=== PATIENT | female | born 1975 | race Caucasian/White ===

== ENCOUNTER 2023-04-05 19:57 | Observation (INO) | payer MEDICARE, SELFPAY ==
[2023-04-05 20:01] VITALS: BP 122/61; PULSE 83; RESP 16; TEMP 37; O2SAT 97
--- NOTE | 2023-04-05 20:12 | US_ITS ---
The [address] [address] Patient Name: SRUTHI GRIGGS MRN: [id number] date: 1975 Sex: F Assigned Patient Location: ER Current Patient Location: ED.MAIN Accession/Order Number: [id number] Exam Date: 04/05/2023 20:20 Report Date: 04/05/2023 21:00 At the request of: MIRIAN GLEASON Procedure: US venous doppler LE LT EXAMINATION: US venous doppler LE LT HISTORY: Left lower extremity edema and redness COMPARISON: None. TECHNIQUE: Venous duplex examination of the left lower extremity performed using B-mode, color flow and spectral analysis. FINDINGS: Left Thigh Veins: Common Femoral: Patent. Femoral (SFV): Patent. Popliteal: Patent. Left Calf Veins: Peroneal: Patent. Posterior Tibial: Patent. IMPRESSION: No evidence of deep venous thrombosis in the left lower extremity. Electronically authenticated by: JARRETT MIRANDA Date: 04/05/2023 21:00
--- NOTE | 2023-04-05 20:12 | ECG_ITS ---
The [facility] Test Date: 2023-04-05 Pat Name: SRUTHI GRIGGS Department: Room: - Gender: Female Application Lead: : 1975 Requested By: [id number] Order Number: [id number] Reading MD: MEENA VERMA Measurements Intervals [place] Rate: 82 P: 44 CT: 158 QRS: 64 QRSD: 90 T: 27 QT: 372 QTc: 411 Interpretive Statements 1100 Sinus rhythm 8102 Low QRS voltage in chest leads 9120 atypical ECG No previous ECG available for comparison Electronically Signed On 04-06-2023 7:02:23 EDT by MEENA VERMA
--- NOTE | 2023-04-05 20:15 | ED_ITS ---
Patient was evaluated in conjunction with the physician assistant golf course superintendent. I agree with the workup and plan for admission. HPI - General Adult General Chief complaint: Skin/Abscess/Foreign Body Stated complaint: MS Flair up Time Seen by Provider: 04/05/23 20:12 Source: patient Mode of arrival: ambulance Limitations: physical limitation History of Present Illness HPI narrative: Patient is a 48-year-old female with multiple sclerosis who presents to the emergency department by ambulance for the evaluation of anxiety and increasing weakness. She states she is having an MS exacerbation that was brought on by her anxiety. She had a fall at home prior to arrival without injury. She further complains of redness and swelling with pain to the left anterior leg. She states for the last three weeks she has had redness, blistering and drainage from the left anterior tibia. She denies fevers, vomiting. She has not been evaluated for this previously. She states she lives at home alone and has to care for herself. Patient is noted to smell strongly of urine with animal hair covering her clothing, she appears unkempt with poor hygiene Related Data Home Medications Medication Instructions Recorded Confirmed 4 aminopyridine 10mg PO TID 04/05/23 baclofen 20 mg tablet 20 mg PO Q8H PRN muscle spasm 04/05/23 04/05/23 cholecalciferol (vitamin D3) 1,250 50,000 unit PO .COMPLEX 04/05/23 04/05/23 mcg (50,000 unit) capsule dalfampridine 10 mg 10 mg PO Q12H 04/05/23 04/05/23 tablet,extended release,12 hr modafinil 200 mg tablet 200 mg PO DAILY 04/05/23 04/05/23 sertraline 100 mg tablet 100 mg PO DAILY 04/05/23 04/05/23 solifenacin 10 mg tablet 10 mg PO DAILY 04/05/23 04/05/23 Allergies Allergy/AdvReac Type Severity Reaction Status Date / Time No Known Drug Allergies Allergy Verified 04/05/23 20:00 Review of Systems ROS Constitutional Denies: fever or chills Ears, nose, mouth, and throat Denies: neck pain Cardiovascular Denies: chest pain Respiratory Denies: shortness of breath or cough Gastrointestinal Denies: nausea or vomiting Genitourinary Denies: painful urination Musculoskeletal Denies: back pain Psychiatric Denies: anxiety PFSH PFS Medical History (Updated 04/06/23 @ 00:06 by Gutierrez Johnson MD) Social History Smoking status: Current some day smoker Gender Identity: female Exam Narrative Exam Narrative: Gen.: Awake, alert, in no distress Head: Normocephalic, atraumatic ENT: Moist mucous membranes Respiratory: No respiratory distress, lungs clear bilaterally Cardio: Regular rate and rhythm Extremities: Left calf is significantly more swollen than the right calf with a large erythematous blistered area to the left anterior tibia. No drainage noted. Animal and human hair appears stuck to the area circumferentially. No circumferential erythema noted, 2+ DP pulses bilaterally. Significantly limited motion of the lower extremities Psych: Anxious Neuro: No focal neuro deficit Skin: Warm, dry Constitutional Vital Signs - 24 hr 04/05/23 20:01 04/05/23 20:25 Temperature 98.6 F Pulse Rate [Monitor] 83 79 Respiratory Rate 16 17 Blood Pressure [Right Arm] 122/61 H Pulse Oximetry 97 Oxygen Delivery Method Room Air Course Vital Signs Vital signs: Vital Signs Temperature 98.6 F 04/05/23 20:01 Pulse Rate 83 04/05/23 20:01 Respiratory Rate 16 04/05/23 20:01 Blood Pressure 122/61 H 04/05/23 20:01 Pulse Oximetry 97 04/05/23 20:01 Oxygen Delivery Method Room Air 04/05/23 20:01 Temperature 97.8 F 04/05/23 22:40 Pulse Rate 74 04/05/23 22:40 Respiratory Rate 18 04/05/23 22:40 Blood Pressure 120/73 H 04/05/23 22:40 Pulse Oximetry 95 04/05/23 22:40 Oxygen Delivery Method Room Air 04/05/23 22:40 Medical Decision Making [facility] Narrative Medical decision making narrative: Patient was treated with Ativan in the Emergency Room, sepsis orders were initiated although the labs show that the patient does not have sepsis. Ultras ound with no evidence of deep vein thrombosis. Patient is treated with Ancef for cellulitis of the left lower extremity. She is high risk for failure of outpatient treatment and not able to care for herself, she is significantly weak and unable to ambulate well with falls at home. We will admit for observation for treatment of cellulitis of the left leg with professor of social work consult. Stable at time of admission Medical Records Medical records reviewed: Yes I reviewed the patient's medical records Lab Data Lab results reviewed: Yes I reviewed the patient's lab results Labs: Lab Results 04/05/23 Range/Units 20:20 WBC 6.1 (4.0-11.0) 10^3/uL RBC 3.74 L (4.20-5.40) 10^6/uL Hgb 9.8 L (12.0-16.0) g/dL Hct 31.5 L (36.0-48.0) % MCV 84.2 (81.0-99.0) fL MCH 26.2 L (26.7-34.0) pg MCHC 31.1 (29.9-35.2) g/dL RDW 14.5 (11.0-15.0) % Plt Count 282 (150-450) 10^3/uL MPV 9.1 L (9.5-13.5) fL Neut % (Auto) 78.7 H (43.0-75.0) % Lymph % (Auto) 9.9 L (20.5-60.0) % Sharkey % (Auto) 8.1 (1.7-12.0) % Eos % (Auto) 2.3 (0.9-7.0) % Baso % (Auto) 0.3 (0.2-2.0) % Neut # (Auto) 4.8 (1.4-6.5) 10^3/uL Lymph # (Auto) 0.6 L (1.2-3.8) 10^3/uL Sharkey # (Auto) 0.5 (0.3-0.8) 10^3/uL Eos # (Auto) 0.1 (0.0-0.7) 10^3/uL Baso # (Auto) 0.0 (0.0-0.1) 10^3/uL Abs Immat Gran (auto) 0.04 H (0.00-0.03) 10^3/uL Imm/Tot Granulo (auto) 0.7 H (0.0-0.5) % PT 10.1 (9.0-11.6) sec INR 0.95 APTT 28.2 (22.3-36.2) sec Sodium 136 (136-145) mmol/L Potassium 3.3 L (3.5-5.1) mmol/L Chloride 103 (98-107) mmol/L Carbon Dioxide 24.6 (21.0-32.0) mmol/L Anion Gap 11.7 BUN 13.0 (7.0-18.0) mg/dL Creatinine 0.72 (0.55-1.02) mg/dL Est GFR ( Amer) >60 (>=60) Est GFR (Non-Af Amer) >60 (>=60) BUN/Creatinine Ratio 18.1 Glucose 87 (74-106) mg/dL Lactate 0.5 (0.4-2.0) mmol/L Calcium 8.7 (8.5-10.1) mg/dL Total Bilirubin 0.2 (0.2-1.0) mg/dL AST 14 L (15-37) U/L ALT 12 L (14-59) U/L Alkaline Phosphatase 106 (46-116) U/L Total Protein 7.0 (6.4-8.2) g/dL Albumin 2.8 L (3.4-5.0) g/dL Globulin 4.2 g/dL Albumin/Globulin Ratio 0.7 Imaging Data Venous US: Attestation: I have reviewed the pertinent imaging results. Radiologist's impression: Procedure: US venous doppler LE LT EXAMINATION: US venous doppler LE LT HISTORY: Left lower extremity edema and redness COMPARISON: None. TECHNIQUE: Venous duplex examination of the left lower extremity performed using B-mode, color flow and spectral analysis. FINDINGS: Left Thigh Veins: Common Femoral: Patent. Femoral (SFV): Patent. Popliteal: Patent. Left Calf Veins: Peroneal: Patent. Posterior Tibial: Patent. IMPRESSION: No evidence of deep venous thrombosis in the left lower extremity. Electronically authenticated by: JARRETT MIRANDA Date: 04/05/2023 21:00 Discharge Plan Discharge Chief Complaint: Skin/Abscess/Foreign Body Clinical Impression: Generalized weakness, Cellulitis Patient Disposition: Admitted as Observation Time of Disposition Decision: 21:40 Condition: Good Discharge Date/Time: 04/05/23 22:25
[2023-04-05 20:25] VITALS: PULSE 79; RESP 17
[2023-04-05] MEDS: LORAZEPAM 2 MG/ML 1 ML VIAL 1 MG IV (20:38)
[2023-04-05 20:47] LABS: Basophils Percent Auto 0.3 % (0.2-2.0); Eosinophils Absolute Auto 0.1 10^3/uL (0.0-0.7); Eosinophils Percent Auto 2.3 % (0.9-7.0); Hematocrit 31.5 % (36.0-48.0); Hemoglobin 9.8 g/dL (12.0-16.0); Immature Granulocytes Abs Auto 0.04 10^3/uL (0.00-0.03); Immature Granulocytes Pct Auto 0.7 % (0.0-0.5); Lymphocytes Absolute Auto 0.6 10^3/uL (1.2-3.8); Lymphocytes Percent Auto 9.9 % (20.5-60.0); Mean Corpuscular HGB Conc 31.1 g/dL (29.9-35.2); Mean Corpuscular Hemoglobin 26.2 pg (26.7-34.0); Mean Corpuscular Volume 84.2 fL (81.0-99.0); Mean Platelet Volume 9.1 fL (9.5-13.5); Monocytes Absolute Auto 0.5 10^3/uL (0.3-0.8); Monocytes Percent Auto 8.1 % (1.7-12.0); Neutrophils Absolute Auto 4.8 10^3/uL (1.4-6.5); Neutrophils Percent Auto 78.7 % (43.0-75.0); Platelet Count 282 10^3/uL (150-450); Red Blood Count 3.74 10^6/uL (4.20-5.40); Red Cell Distribution Width 14.5 % (11.0-15.0); White Blood Count 6.1 10^3/uL (4.0-11.0)
[2023-04-05 20:58] LABS: INR 0.95; Partial Thromboplastin Time 28.2 sec (22.3-36.2); Prothrombin Time 10.1 sec (9.0-11.6)
[2023-04-05 20:59] LABS: Lactate/Lactic Acid 0.5 mmol/L (0.4-2.0)
[2023-04-05 21:08] LABS: Alanine Aminotransferase 12 U/L (14-59); Albumin Globulin Ratio 0.7; Albumin Level 2.8 g/dL (3.4-5.0); Alkaline Phosphatase 106 U/L (46-116); Anion Gap 11.7; Aspartate Amino Transferase 14 U/L (15-37); BUN Creatinine Ratio 18.1; Bilirubin Total 0.2 mg/dL (0.2-1.0); Calcium 8.7 mg/dL (8.5-10.1); Carbon Dioxide 24.6 mmol/L (21.0-32.0); Chloride 103 mmol/L (98-107); Estimated GFR (African America >60 (>=60); Estimated GFR (Non-African Ame >60 (>=60); Globulin 4.2 g/dL; Glucose 87 mg/dL (74-106); Potassium 3.3 mmol/L (3.5-5.1); Sodium 136 mmol/L (136-145)
--- NOTE | 2023-04-05 21:38 | PC.NURSE ---
left leg wound cleaned and soaked with a Hibiclens bath, matted hair and dry skin cleared off. Pt has a large wound that is somewhat macerated , on left lower leg that wraps around to the back. Skin is sloughy in places and has dried scabs in others . Cellulitis and possible stasis ulcer.
[2023-04-05 22:40] VITALS: BP 120/73; PULSE 74; RESP 18; TEMP 36.6; O2SAT 95; BMI 29.4
--- NOTE | 2023-04-06 | W.PM.TELEPN ---
Progress Note: Subjective Subjective Interval history: LLE wound HPI: this is a 48-year-old female with known hx/o multiple sclerosis who presents to the emergency department by ambulance for the evaluation of anxiety and increasing weakness. She states she is having an MS exacerbation that was brought on by her anxiety. She had a fall at home prior to arrival without injury. She further complains of redness and swelling with pain to the left anterior leg. She states for the last three weeks she has had redness, blistering and drainage from the left anterior tibia. She denies fevers, vomiting. She has not been evaluated for this previously. She states she lives at home alone and has to care for herself. Patient is noted to smell strongly of urine with animal hair covering her clothing, she appears unkempt with poor hygiene. Further evaluation in ED included LLE US which was negative for DVT. Hospitalist consulted for admission Exam Narrative Exam Narrative: NAD, PERRLA< EOMI, MMM Neck - supple, Thyroid not enlarged, LN not palpated Lungs - CTA B/L Card - S1, S2 ABd - NT/ND/+ BSs Ext - no C/C - B/L LE edema - Lt>Rt SKin - large wound LLE mid sheen anterior serface, no obvious drainage Small wound with black eschar RT leg with surrounding reddnes Neuro - CNII- XII grossly intact, Constitutional Vital Signs - 24 hr 04/05/23 20:01 04/05/23 20:25 04/05/23 22:40 Temperature 98.6 F 97.8 F Pulse Rate 74 Pulse Rate [Monitor] 83 79 Respiratory Rate 16 17 18 Blood Pressure [Right Arm] 122/61 H 120/73 H Pulse Oximetry 97 95 Oxygen Delivery Method Room Air Room Air Progress Note: Objective Labs Labs: Short CBC 04/05/23 Range/Units 20:20 WBC 6.1 (4.0-11.0) 10^3/uL Hgb 9.8 L (12.0-16.0) g/dL Hct 31.5 L (36.0-48.0) % Plt Count 282 (150-450) 10^3/uL BMP 04/05/23 20:20 Sodium 136 Potassium 3.3 L Chloride 103 Carbon Dioxide 24.6 BUN 13.0 Creatinine 0.72 Glucose 87 Calcium 8.7 Liver Function 04/05/23 Range/Units 20:20 Total Bilirubin 0.2 (0.2-1.0) mg/dL AST 14 L (15-37) U/L ALT 12 L (14-59) U/L Alkaline Phosphatase 106 (46-116) U/L Albumin 2.8 L (3.4-5.0) g/dL Progress Note: A&P Assessment and Plan (1) Generalized weakness: Assessment and Plan: multifactorial fall precautions PT/OT treat underlying causes (2) Cellulitis: Assessment and Plan: started on broad spectrum abxs wound care consult (3) Anxiety: Assessment and Plan: resume home Rx (4) Iron deficiency anemia: Assessment and Plan: no need for transfusions (5) Multiple sclerosis: Assessment and Plan: continue home Rx, differ for OP management (6) Neurogenic incontinence: Assessment and Plan: might need Tran for now (7) Hypokalemia: Assessment and Plan: going to replace, check Mg level (8) Adult failure to thrive: Assessment and Plan: as above, might need placement (9) Protein-calorie malnutrition, moderate: Assessment and Plan: nutritional services consulted, going to check prealbumin Telemedicine Attestation Telemedicine Attestation I conducted this encounter from [[place]] via secure live, [id number] video conference with the patient, located at [facility] with [Cellulitis]. Prior to the interview, the risks and benefits of telemedicine were discussed with the patient and verbal consent was obtained.
[2023-04-06 01:19] LABS: Bilirubin Urine NEGATIVE (NEGATIVE); Blood Urine SMALL (NEGATIVE); Clarity Urine CLEAR (CLEAR); Color Urine LT. YELLOW (YELLOW); Glucose Urine UA NEGATIVE (NEGATIVE); Ketones Urine NEGATIVE (NEGATIVE); Leukocyte Esterase Urine MODERATE (NEGATIVE); Nitrite Urine POSITIVE (NEGATIVE); Protein Urine NEGATIVE (NEG/TRACE); Urine Microscopic Indicated YES; Urobilinogen Urine 0.2 EU/dL (0.2-1.0)
[2023-04-06 01:25] LABS: Bacteria Urine LARGE #/HPF (NONE SEEN); Mucus Urine NONE SEEN (NONE SEEN); RBC Urine 0-2 #/HPF (0-2); WBC Urine 20-50 #/HPF (NONE SEEN)
[2023-04-06 01:26] LABS: Cast Seen? NONE SEEN #/LPF (NONE SEEN); Crystals Seen? None Seen #/HPF (None Seen); Squamous Epithelial Cell Urine FEW #/LPF (NONE/RARE); Urine Culture Indicated YES
[2023-04-06] MEDS: CEFTRIAXONE 1,000 MG in 0.9 % SODIUM CHLORIDE 50 ML 100 MG IV (02:22)
[2023-04-06] MEDS: 0.9 % SODIUM CHLORIDE 250 ML 30 ML IV (02:24)
[2023-04-06] MEDS: POTASSIUM CHLORIDE 10 MEQ ER TABLET 40 MEQ PO (02:24)
[2023-04-06 04:26] VITALS: TEMP 36.9
[2023-04-06] MEDS: VANCOMYCIN HCL 1,500 MG in 0.9 % SODIUM CHLORIDE 500 ML 500 MG IV (04:31)
[2023-04-06 04:39] VITALS: BP 118/73; PULSE 68; RESP 16; TEMP 36.9; O2SAT 94
[2023-04-06 04:57] LABS: Basophils Percent Auto 0.2 % (0.2-2.0); Eosinophils Absolute Auto 0.1 10^3/uL (0.0-0.7); Hematocrit 29.1 % (36.0-48.0); Hemoglobin 9.2 g/dL (12.0-16.0); Immature Granulocytes Abs Auto 0.01 10^3/uL (0.00-0.03); Immature Granulocytes Pct Auto 0.2 % (0.0-0.5); Lymphocytes Absolute Auto 0.7 10^3/uL (1.2-3.8); Lymphocytes Percent Auto 14.7 % (20.5-60.0); Mean Corpuscular HGB Conc 31.6 g/dL (29.9-35.2); Mean Corpuscular Hemoglobin 26.4 pg (26.7-34.0); Mean Corpuscular Volume 83.6 fL (81.0-99.0); Mean Platelet Volume 9.1 fL (9.5-13.5); Monocytes Absolute Auto 0.5 10^3/uL (0.3-0.8); Monocytes Percent Auto 10.9 % (1.7-12.0); Neutrophils Absolute Auto 3.6 10^3/uL (1.4-6.5); Platelet Count 240 10^3/uL (150-450); Red Blood Count 3.48 10^6/uL (4.20-5.40); Red Cell Distribution Width 14.4 % (11.0-15.0)
[2023-04-06 05:23] LABS: Anion Gap 12.5; BUN Creatinine Ratio 17.5; Calcium 8.1 mg/dL (8.5-10.1); Carbon Dioxide 24.5 mmol/L (21.0-32.0); Chloride 106 mmol/L (98-107); Estimated GFR (African America >60 (>=60); Estimated GFR (Non-African Ame >60 (>=60); Glucose 80 mg/dL (74-106); Sodium 139 mmol/L (136-145)
[2023-04-06 05:35] LABS: Chol HDL Ratio 3.5; Cholesterol 176 mg/dL (<=200); HDL Cholesterol 51 mg/dL (40-60); Magnesium 1.7 mg/dL (1.8-2.4); Prealbumin 10.7 mg/dL (20.9-45.5); Triglycerides 70 mg/dL (<=150)
--- NOTE | 2023-04-06 09:38 | P.PODCN_ITS ---
[facility] - Podiatry Data of Consult Patient: new to practice Consult date: 04/06/23 Requesting physician: Lydia Spangler DO Primary care provider: Non-Staff Physician, MD Consult Narrative Reason for consult: Lower extremity cellulitis Narrative: Patient is a 48-year-old female with past medical history for multiple sclerosis as well as bilateral lower extremity edema who presented to the emergency department yesterday due to weakness, redness swelling and drainage to her left leg as well as anxiety and frequent falls. Patient was admitted due to failure to thrive and concern for cellulitis. It is noted by the emergency room physician that she did not meet sepsis protocol but did have redness, swelling or drainage from her legs. Patient states that she noticed this redness to her left leg around three weeks ago. States her leg started to swell and have fluid draining out of them which has happened before. States that the redness kept Getting worse as well as her weakness. States that she has had multiple sclerosis and she was [age] and it is getting somewhat worse lately. Has a difficult time caring for himself at home due to this weakness and frequent falls. Denies any other pedal complaints. Denies Any other constitutional symptoms. cc:: CC: Lydia Spangler DO Review of Systems ROS Narrative Review of systems were discussed with the patient and negative unless noted in the [facility] [place] History Social History Smoking status: Current some day smoker Gender Identity: female Exam Narrative Exam Narrative: Dermatological: Bilateral edema noted left worse than right Left anterioor tibia noted with multiple partial-thickness venous wounds with serous drainage and dry crusting, erythema extending to mid tibia, no purulence, no palpable abscess, no probe to bone Right posterior lateral Distal tibial erythema noted, no opening, no breaks in the skin Rest of skin is smooth and supple Vascular: Pulses difficult to palpate secondary to edema the palpable Erythema and edema as discussed above Capillary refill intact Muscular skeletal: Pain to palpation of the left anterior tibia strength 5/5 for plantarflexion but 4/5 for dorsiflexion no pain with ankle range of motion Compartment soft and compressible No palpable abscess Nerve Sensation intact to light touch Constitutional Vital Signs - 24 hr 04/05/23 20:01 04/05/23 20:25 04/05/23 22:40 Temperature 98.6 F 97.8 F Pulse Rate 74 Pulse Rate [Monitor] 83 79 Respiratory Rate 16 17 18 Blood Pressure [Right Arm] 122/61 H 120/73 H Pulse Oximetry 97 95 Oxygen Delivery Method Room Air Room Air 04/06/23 04:26 04/06/23 04:39 Temperature 98.4 F 98.4 F Pulse Rate 68 Pulse Rate [Monitor] Respiratory Rate 16 Blood Pressure [Right Arm] 118/73 Pulse Oximetry 94 L Oxygen Delivery Method Room Air Assessment and Plan Assessment and Plan (1) Generalized weakness: (2) Cellulitis: (3) Anxiety: (4) Iron deficiency anemia: (5) Multiple sclerosis: (6) Neurogenic incontinence: (7) Hypokalemia: (8) Adult failure to thrive: (9) Protein-calorie malnutrition, moderate: Plan Assessment: Bilateral cellulitis left worse than right Venous stasis partial thickness wound, left anterior tibia Chronic Lower extremity edema bilaterally left worse than right Plan: Patient seen and evaluated Physical exam findings discussed with the patient Overall seems like she is suffering for some hygiene, failure to thrive, weakness and cellulitis issues I discussed with her that her left leg seems like he has some draining and using partial-thickness wounds which we will dress with Xeroform, 4 x 4 gauze, Kerlix and a light Nathaniel wrap This dressing can be changed every other day dependent upon saturation Her right lower shoulder he does not have any open wounds No leukocytosis noted I did not see any inflammatory markers ordered and would recommend knees are obtained for baseline Continue with antibiotics per hospitalist She can follow up in our wound center one week from discharge She may call if questions or concerns
[2023-04-06] MEDS: SOLIFENACIN SUCCINATE 10 MG TABLET PO (10:05)
[2023-04-06] MEDS: ENOXAPARIN SODIUM 40 MG/0.4 ML SYRINGE SUBQ (10:06)
[2023-04-06] MEDS: DALFAMPRIDINE 10 MG 10 EACH PO ×2 (10:06→20:05)
[2023-04-06] MEDS: ENSURE HP 237 ML LIQUID PO ×2 (10:06→20:04)
[2023-04-06] MEDS: SERTRALINE HCL 100 MG TABLET PO (10:06)
[2023-04-06] MEDS: MODAFINIL 100 MG TABLET 200 MG PO (10:10)
--- NOTE | 2023-04-06 10:47 | CM.NOTE ---
Rounds made with Dr. Spangler, no discharge today. PT and OT to evaluate pt and will follow for any discharge needs.
--- NOTE | 2023-04-06 11:22 | SWNOTE1 ---
MONIE met with pt to discuss dc needs. Pt live at home alone with her dog. She stated her daughter does come check on her. Pt uses a walker at home. Pt does feel she is weaker and is agreeable to go skilled. Pt has been to [facility] in the past and she would like to go there again. Pt is a precert. SW sent referral.
--- NOTE | 2023-04-06 11:38 | PM.HP ---
H&P: HPI History of Present Illness Chief complaint: MS Flair up, Left Leg Cellulitis Narrative: patient is a 48-year-old female with past medical history of multiple sclerosis since the age of [age]. She has a neurologist that she follows with for her MS. yesterday she was brought to the Emergency Room by EMS for left lower extremity edema and erythema. Ultrasound of the left lower extremity was negative for blood clot, but she does have extensive cellulitis. Patient reports that she has not been able to care for herself she states that the only working shower is upstairs and she is not able to go up the stairs by herself. She is uncertain as to when the last time she showered. Per the Emergency Room notes there was patchy hair and dirt in her wounds of the left lower extremity. Patient also had a tremendous amount of body odor even after two showers today. Patient also states that her master bedroom is upstairs but she has a hospital bed from prior hospitalization that she sleeps and down stairs. She has one working sink in the house which is the kitchen sink that she uses to brush her teeth. She has a daughter who occasionally will check on her, but she does live by herself and she has no other help. Her pre-albumin level was low signifying significant malnutrition and failure to thrive. At this time patient denies any fevers or chills just some discomfort in the left lower extremity. Review of Systems ROS Narrative ROS: a complete review of systems were reviewed with patient and are positive as below or listed in History of Chief Complaint. General: no fever, chills, night sweats Head: no headache, trauma, visual changes, nausea or vomiting Skin: LLE rash/redness Eyes: no blurriness of vision Ears: no reported hearing loss, vertigo, earache, or tinnitus Throat: no sore throat, hoarseness, swelling of neck, or tongue pain Heart: no chest pain Lungs: no shortness of breath or cough GI: no diarrhea or vomiting/nausea Urinary: no urinary urgency, frequency or pain Neuro: no numbness or tingling HEM: no bleeding issues or bruising ENDO: no thyroid problems Psych: no anxiety or depression PFSH PFS Medical History Social History Smoking status: Current some day smoker Gender Identity: female Meds Home Medications and Allergies Home Medications Medication Instructions Recorded Confirmed Type 4 aminopyridine 10mg PO TID 04/05/23 History baclofen 20 mg tablet 20 mg PO Q8H muscle spasm 04/05/23 04/06/23 History cholecalciferol (vitamin D3) 1,250 50,000 unit PO .COMPLEX 04/05/23 04/05/23 History mcg (50,000 unit) capsule dalfampridine 10 mg 10 mg PO Q12H 04/05/23 04/05/23 History tablet,extended release,12 hr modafinil 200 mg tablet 200 mg PO DAILY 04/05/23 04/05/23 History sertraline 100 mg tablet 100 mg PO DAILY 04/05/23 04/05/23 History solifenacin 10 mg tablet 10 mg PO DAILY 04/05/23 04/05/23 History Allergies Allergy/AdvReac Type Severity Reaction Status Date / Time No Known Drug Allergies Allergy Verified 04/05/23 20:00 Exam Narrative Exam Narrative: General: Patient is alert, and oriented to person, place and time with normal affect, very poor hygiene and malodorous body odor Skin: left lower extremity displays some +1 pitting edema and extensive cellulitis from below the left knee extending to the top of the left foot with some open areas of clear serous drainage, no evidence of abscess Head: atraumatic, acephalic Eyes: PERRLA, no nystagmus present, conjunctiva clear, no scleral icterus Ears: normal gross auditory acuity Nose: symmetric, no discharge, no maxillary or frontal sinus tenderness Mouth/Throat: very poor dentition Heart: Normal rate and rhythm, no murmurs/rubs/gallops Lungs: no audible wheezes, crackles and normal breath sounds all lung shelby Abdomen: Normal audible bowel sounds, no distension, No palpable masses, no organomegaly, no rebound/guarding/ or rigidity Musculoskeletal: muscle atrophy noted, ROM is limited due to being in hospital bed Vascular: Normal carotid, radial, femoral, posterior tibial, and dorsalis pedis pulses Lymph: no supraclavicular, axillary, or anterior/posterior cervical adenopathy Neuro: CN II-X grossly intact, normal sensation upper and lower extremities Constitutional Vital Signs - 24 hr 04/05/23 20:01 04/05/23 20:25 04/05/23 22:40 Temperature 98.6 F 97.8 F Pulse Rate 74 Pulse Rate [Monitor] 83 79 Respiratory Rate 16 17 18 Blood Pressure [Right Arm] 122/61 H 120/73 H Pulse Oximetry 97 95 Oxygen Delivery Method Room Air Room Air 04/06/23 04:26 04/06/23 04:39 Temperature 98.4 F 98.4 F Pulse Rate 68 Pulse Rate [Monitor] Respiratory Rate 16 Blood Pressure [Right Arm] 118/73 Pulse Oximetry 94 L Oxygen Delivery Method Room Air Results Labs Labs: Short CBC 04/05/23 04/06/23 Range/Units 20:20 04:10 WBC 6.1 5.0 (4.0-11.0) 10^3/uL Hgb 9.8 L 9.2 L (12.0-16.0) g/dL Hct 31.5 L 29.1 L (36.0-48.0) % Plt Count 282 240 (150-450) 10^3/uL BMP 04/05/23 04/06/23 20:20 04:10 Sodium 136 139 Potassium 3.3 L 4.0 Chloride 103 106 Carbon Dioxide 24.6 24.5 BUN 13.0 10.0 Creatinine 0.72 0.57 Glucose 87 80 Calcium 8.7 8.1 L Liver Function 04/05/23 Range/Units 20:20 Total Bilirubin 0.2 (0.2-1.0) mg/dL AST 14 L (15-37) U/L ALT 12 L (14-59) U/L Alkaline Phosphatase 106 (46-116) U/L Albumin 2.8 L (3.4-5.0) g/dL Urine 04/06/23 Range/Units 01:05 Urine Color Lt. yellow (YELLOW) Urine Clarity Clear (CLEAR) Urine pH 6.0 (5.0-9.0) Ur Specific [place] 1.020 (1.005-1.025) Urine Protein Negative (NEG/TRACE) mg/dL Urine Glucose (UA) Negative (NEGATIVE) mg/dL Assessment and Plan Assessment and Plan (1) Cellulitis: Assessment and Plan: patient was placed on Rocephin and vancomycin in a wound consult present. Obtain wound culture if possible. Normal white count and patient is currently afebrile. Area was demarcated and will monitor for improvement, will check crp and esr (2) Acute cystitis with hematuria: Assessment and Plan: urine culture pending we'll continue Rocephin (3) Generalized weakness: Assessment and Plan: can be from her MS, or malnutrition, or her inability to care for herself. Continue to monitor electrolytes and place on ensure supplements, physical therapy and occupational therapy evaluation (4) Iron deficiency anemia: Assessment and Plan: hemoglobin has been stable continue to monitor (5) Anxiety: Assessment and Plan: continue Zoloft (6) Multiple sclerosis: Assessment and Plan: continue her medications (7) Neurogenic incontinence: Assessment and Plan: and taking her medications (8) Hypokalemia: Assessment and Plan: monitor daily potassium and replace if needed (9) Adult failure to thrive: Assessment and Plan: would possibly benefit from a stent and rehab, PT /OT evaluation (10) Protein-calorie malnutrition, moderate: (11) Bilateral lower extremity edema: Assessment and Plan: may be chronic but will check pro-bnp, no prior heart history Plan patient is a full code lovenox for Deep vein thrombosis prophylaxis Patient is an inpatient status and is expected to stay more than two midnights
[2023-04-06 12:09] LABS: Erythrocyte Sedimentation Rate 65 mm/hr (<=20)
[2023-04-06 12:27] LABS: C Reactive Protein 1.3 mg/dL (<=1.0)
--- NOTE | 2023-04-06 12:44 | SWNOTE1 ---
SW stopped in to give pt a PCP list, she is going to look over. SW let her know to call and try to get a visit scheduled.
[2023-04-06] MEDS: NICOTINE 21 MG PATCH.TD24 TD (13:44)
[2023-04-06 13:49] VITALS: BMI 29.4
[2023-04-06 14:18] VITALS: BP 97/62; PULSE 72; RESP 18; TEMP 36.6; O2SAT 98
--- NOTE | 2023-04-06 14:28 | CA_ITS ---
Patient: SRUTHI GRIGGS Exam Date: 04/07/2023 : 1975 Gender:F Ordering : VINNY ARTEAGA . Admission #: [id number] Family : Order #: [id number] CLICK HERE TO VIEW EXAM ECHOCARDIOGRAM REPORT PROCEDURE: CA ECHO DOPPLER COMPLETE INDICATIONS: Elevated BNP, smoker, multiple sclerosis COMPARISON: None. DESCRIPTION: COMPLETE ECHOCARDIOGRAM Real-time transthoracic echocardiography with 2D, M-mode, spectral and color flow Doppler performed. QUALITY: Technical quality was good. LEFT VENTRICLE: Normal chamber size. Mildly thickened septal wall. Normal systolic function. LV EF: Normal left ventricular ejection fraction, (60%). DIASTOLIC: Normal diastolic function. ATRIAL SEPTUM: LEFT ATRIUM: Normal chamber size. RIGHT ATRIUM: Normal chamber size. RIGHT VENTRICLE: Normal chamber size. Normal right ventricular systolic function. TRICUSPID VALVE: Normal mobility and thickness. No stenosis with trivial regurgitation. No evidence of pulmonary hypertension. RVSP 24 mmHg MITRAL VALVE: Normal mobility and thickness. No evidence of mitral valve stenosis. There is no mitral annular calcification. Trivial mitral regurgitation. AORTIC VALVE: Normal trileaflet appearance. No visible sclerosis. Normal leaflet mobility. No evidence of aortic valve stenosis. No aortic regurgitation. AORTIC ROOT: Normal diameter and appearance. PULMONIC VALVE: Normal thickness and mobility. No stenosis. Trivial regurgitation. PERICARDIUM: No evidence of pericardial effusion. IVC: Collapses with inspirations. PLEURA: CONCLUSION: 1. Normal ventricular function. LVEF is 60%. 2. No significant valvular dysfunction. 3. Normal right-sided pressures. 4. No pericardial effusion. Adult Echocardiography Procedure Report Left Ventricle LVEDD (3.7 - 5.6 cm): 4.33 cm LVESD (2.2 - 4.0 cm): 3.24 cm LVIVS thickness (0.6 - 1.2 cm): 1.15 cm LVPW thickness (0.5 - 1.0 cm): 0.80 cm e': 0.16 m/s E - e': 5.06 LVOT Max Gradient: 3.80 mm[Hg] LVOT Area (cm2): 0.97 m/s Peak Velocity (LVOT): 0.97 m/s LVOT Diameter 1.98 cm Left Atrium LA Volume Index (2D A2C): 26.78 ml/m2 Left Atrium Systolic Dimension: 3.01 cm Mitral Valve MV E to A Ratio: 1.10 Mitral Valve A-Wave Peak Velocity: 0.73 m/s Mitral Valve E-Wave Peak Velocity: 0.81 m/s Right Ventricle Aorta AO Root Diam: 3.33 cm Ascending Ao Diam: 3.35 cm Aortic Valve AoV Area (Peak Tarik): 2.68 cm2, 2.68 cm2 Peak Velocity(Antegrade Flow): 1.11 m/s Peak Gradient(Antegrade Flow): 4.96 mm[Hg] Tricuspid Valve Peak Velocity (Regurgitant Flow): 2.29 m/s Pulmonic Valve Peak Velocity: 0.88 m/s Peak Gradient: 2.87 mm[Hg], 3.33 mm[Hg] Right Atrium Right Atrium Systolic Pressure: 32.06 ml, 32.06 ml Dictated by: Rafi Hodge M.D. on 04/07/2023 at 18:29 Approved by: Rafi Hodge M.D. on 04/07/2023 at 18:31
[2023-04-06] MEDS: VANCOMYCIN HCL 1,500 MG in 0.9 % SODIUM CHLORIDE 500 ML 250 MG IV (15:34)
[2023-04-06 19:57] VITALS: RESP 18
[2023-04-06 20:42] VITALS: BP 94/57; PULSE 78; RESP 18; TEMP 36.7; O2SAT 95
[2023-04-07] MEDS: CEFTRIAXONE 1,000 MG in 0.9 % SODIUM CHLORIDE 50 ML 100 MG IV (03:17)
[2023-04-07] MEDS: VANCOMYCIN HCL 1,500 MG in 0.9 % SODIUM CHLORIDE 500 ML 250 MG IV ×2 (04:23→15:37)
[2023-04-07 04:59] LABS: Basophils Percent Auto 0.2 % (0.2-2.0); Eosinophils Absolute Auto 0.1 10^3/uL (0.0-0.7); Eosinophils Percent Auto 2.3 % (0.9-7.0); Hematocrit 29.2 % (36.0-48.0); Immature Granulocytes Abs Auto 0.02 10^3/uL (0.00-0.03); Immature Granulocytes Pct Auto 0.4 % (0.0-0.5); Lymphocytes Absolute Auto 0.8 10^3/uL (1.2-3.8); Lymphocytes Percent Auto 14.5 % (20.5-60.0); Mean Corpuscular HGB Conc 30.8 g/dL (29.9-35.2); Mean Corpuscular Hemoglobin 26.3 pg (26.7-34.0); Mean Corpuscular Volume 85.4 fL (81.0-99.0); Mean Platelet Volume 9.2 fL (9.5-13.5); Monocytes Absolute Auto 0.7 10^3/uL (0.3-0.8); Monocytes Percent Auto 12.9 % (1.7-12.0); Neutrophils Absolute Auto 3.6 10^3/uL (1.4-6.5); Neutrophils Percent Auto 69.7 % (43.0-75.0); Platelet Count 238 10^3/uL (150-450); Red Blood Count 3.42 10^6/uL (4.20-5.40); Red Cell Distribution Width 14.6 % (11.0-15.0); White Blood Count 5.2 10^3/uL (4.0-11.0)
[2023-04-07 05:21] LABS: Alanine Aminotransferase 14 U/L (14-59); Albumin Globulin Ratio 0.6; Albumin Level 2.1 g/dL (3.4-5.0); Alkaline Phosphatase 92 U/L (46-116); Anion Gap 9.3; Aspartate Amino Transferase 21 U/L (15-37); BUN Creatinine Ratio 19.7; Bilirubin Total 0.1 mg/dL (0.2-1.0); Carbon Dioxide 26.8 mmol/L (21.0-32.0); Chloride 106 mmol/L (98-107); Estimated GFR (African America >60 (>=60); Estimated GFR (Non-African Ame >60 (>=60); Globulin 3.7 g/dL; Glucose 100 mg/dL (74-106); Potassium 4.1 mmol/L (3.5-5.1); Sodium 138 mmol/L (136-145); Total Protein 5.8 g/dL (6.4-8.2)
[2023-04-07 05:49] VITALS: BP 118/74; PULSE 73; RESP 18; TEMP 36.8; O2SAT 91
[2023-04-07] MEDS: ACETAMINOPHEN 325 MG TABLET 650 MG PO (06:36)
[2023-04-07] MEDS: SERTRALINE HCL 100 MG TABLET PO (08:29)
[2023-04-07] MEDS: MODAFINIL 100 MG TABLET 200 MG PO (08:29)
[2023-04-07] MEDS: ENSURE HP 237 ML LIQUID PO ×2 (08:29→21:21)
[2023-04-07] MEDS: NICOTINE 21 MG PATCH.TD24 TD (08:29)
[2023-04-07] MEDS: ENOXAPARIN SODIUM 40 MG/0.4 ML SYRINGE SUBQ (08:29)
[2023-04-07] MEDS: DALFAMPRIDINE 10 MG 10 EACH PO (08:30)
--- NOTE | 2023-04-07 11:36 | CM.NOTE ---
Rounds made with Dr. Spangler, no discharge to home today. Pt will have cardiac echo completed today. Pt's plan is to go to [facility] at discharge for skilled therapy.
[2023-04-07] MEDS: SOLIFENACIN SUCCINATE 10 MG TABLET PO (11:48)
[2023-04-07] MEDS: BACLOFEN 10 MG TABLET 20 MG PO (11:49)
--- NOTE | 2023-04-07 12:11 | PT.DAILY ---
Physical Therapy Daily Note PT Daily Note/Assess Start: 04/07/23 12:07 Freq: Status: Active Protocol: Document 04/07/23 11:40 TEVIN (Rec: 04/07/23 12:11 TEVIN [id number]) Physical Therapy Daily Note/Assessment Time In/Time Out Time In 11:40 Time Out 12:00 Pain In Pain N/A Pain Out Pain N/A Subjective Subjective Pt supine upon arrival. Got a shower this morning. Agrees to PT. Therapeutic Exercise Time Therapeutic Exercise Minutes (minutes) 10 Therapeutic Exercise Units 1 Therapeutic Exercise Treatment Therapeutic Exercise Treatment Supine AP, heel slides, abd slides, SLR, SAQ, hooklying add squeezes, QS, 10x ea to improve strength and mobility. Therapeutic Activity Time Therapeutic Activity Minutes (minutes) 5 Therapeutic Activity Units 0 Therapeutic Activity Treatment Bed Mobility Ability Minimum Assist Chair Transfer Ability Minimum Assist,2 Person Assist Therapeutic Activity Comments Supine>sit Andreas to advance upper body. Sit>stand Andreas+2. Amb to BS chair 3' with Andreas+2 - unsteady. Remains in BS chair upon completion with call light in reach and chair alarm set. Total Physical Therapy Time Total Therapy Minutes 15 Total Physical Therapy Units 1 Summary Daily Note Summary Improved transfer ability today but cont to be unsteady/ ataxic with gait.
--- NOTE | 2023-04-07 12:23 | CM.NOTE ---
Medicare Outpatient Observation Notice discussed with pt, pt verbalizes understanding and signs paper. Original given to pt and copy placed on pt's chart.
--- NOTE | 2023-04-07 12:51 | PM.PN ---
Progress Note: Subjective Subjective Interval history: patient is a 48-year-old female with past medical history of multiple sclerosis since the age of [age]. She has a neurologist that she follows with for her MS. yesterday she was brought to the Emergency Room by EMS for left lower extremity edema and erythema. Ultrasound of the left lower extremity was negative for blood clot, but she does have extensive cellulitis. Patient reports that she has not been able to care for herself she states that the only working shower is upstairs and she is not able to go up the stairs by herself. She is uncertain as to when the last time she showered. Per the Emergency Room notes there was patchy hair and dirt in her wounds of the left lower extremity. Patient also had a tremendous amount of body odor even after two showers today. Patient also states that her master bedroom is upstairs but she has a hospital bed from prior hospitalization that she sleeps and down stairs. She has one working sink in the house which is the kitchen sink that she uses to brush her teeth. She has a daughter who occasionally will check on her, but she does live by herself and she has no other help. Her pre-albumin level was low signifying significant malnutrition and failure to thrive. At this time patient denies any fevers or chills just some discomfort in the left lower extremity. Do to her bilateral lower ext edema, proBNP elevation, Echo ordered. She is having no shortness of breath, or chest pain. Exam Narrative Exam Narrative: General: Patient is alert, and oriented to person, place and time with normal affect, very poor hygiene and malodorous body odor Skin: left lower extremity displays some +1 pitting edema and extensive cellulitis from below the left knee extending to the top of the left foot with some open areas of clear serous drainage, no evidence of abscess, some erythema on the right leg but appears to be more chronic stasis dermatitis erythema, she does have several small abrasions in her skin on mallory areas Head: atraumatic, acephalic Eyes: PERRLA, no nystagmus present, conjunctiva clear, no scleral icterus Ears: normal gross auditory acuity Nose: symmetric, no discharge, no maxillary or frontal sinus tenderness Mouth/Throat: very poor dentition Heart: Normal rate and rhythm, no murmurs/rubs/gallops Lungs: no audible wheezes, crackles and normal breath sounds all lung shelby Abdomen: Normal audible bowel sounds, no distension, No palpable masses, no organomegaly, no rebound/guarding/ or rigidity Musculoskeletal: muscle atrophy noted, ROM is limited due to being in hospital bed Lymph: no supraclavicular, axillary, or anterior/posterior cervical adenopathy Neuro: CN II-X grossly intact, normal sensation upper and lower extremities Constitutional Vital Signs - 24 hr 04/06/23 14:18 04/06/23 19:57 04/06/23 20:42 Temperature 97.8 F 98.1 F Pulse Rate 72 78 Respiratory Rate 18 18 18 Blood Pressure [Right Arm] 97/62 94/57 L Pulse Oximetry 98 95 Oxygen Delivery Method Room Air Room Air 04/07/23 05:49 Temperature 98.2 F Pulse Rate 73 Respiratory Rate 18 Blood Pressure [Right Arm] 118/74 Pulse Oximetry 91 L Oxygen Delivery Method Room Air Progress Note: Objective Labs Labs: Short CBC 04/07/23 Range/Units 04:17 WBC 5.2 (4.0-11.0) 10^3/uL Hgb 9.0 L (12.0-16.0) g/dL Hct 29.2 L (36.0-48.0) % Plt Count 238 (150-450) 10^3/uL BMP 04/07/23 04:17 Sodium 138 Potassium 4.1 Chloride 106 Carbon Dioxide 26.8 BUN 15.0 Creatinine 0.76 Glucose 100 Calcium 8.0 L Liver Function 04/07/23 Range/Units 04:17 Total Bilirubin 0.1 L (0.2-1.0) mg/dL AST 21 (15-37) U/L ALT 14 (14-59) U/L Alkaline Phosphatase 92 (46-116) U/L Albumin 2.1 L (3.4-5.0) g/dL Progress Note: A&P Assessment and Plan (1) Cellulitis: Assessment and Plan: patient was placed on Rocephin and vancomycin and wound consult present. Obtain wound culture if possible. Normal white count and patient is currently afebrile. Area was demarcated and will monitor for improvement, elevated crp and esr (2) Acute cystitis with hematuria: Assessment and Plan: urine culture pending we'll continue Rocephin (3) Generalized weakness: Assessment and Plan: can be from her MS, or malnutrition, or her inability to care for herself. Continue to monitor electrolytes and place on ensure supplements, physical therapy and occupational therapy evaluation (4) Iron deficiency anemia: Assessment and Plan: hemoglobin has been stable continue to monitor (5) Anxiety: Assessment and Plan: continue Zoloft (6) Multiple sclerosis: Assessment and Plan: continue her medications (7) Neurogenic incontinence: Assessment and Plan: continue her medications (8) Hypokalemia: Assessment and Plan: monitor daily potassium and replace if needed (9) Adult failure to thrive: Assessment and Plan: would possibly benefit from a stent and rehab, PT /OT evaluation (10) Protein-calorie malnutrition, moderate: (11) Bilateral lower extremity edema: Assessment and Plan: Elevated pro-bnp, echo pending, no IVF, may consider PRN lasix. patient reports no prior heart history of concern Plan patient is a full code lovenox for Deep vein thrombosis prophylaxis Patient is an inpatient status and is expected to stay more than two midnights
--- NOTE | 2023-04-07 13:12 | SWNOTE1 ---
Updates sent to [facility] for precert. Precert started 04/07/23.
[2023-04-07 14:00] VITALS: BP 126/62; PULSE 77; RESP 15; TEMP 36.8; O2SAT 96
[2023-04-07 15:18] LABS: Vancomycin Trough 17.9 ug/mL (5.0-20.0)
--- NOTE | 2023-04-07 15:47 | SWNOTE1 ---
Pt is approved to go to [facility], plan is for discharge tomorrow (04/08/2023.) SW completed HENS and packet is updated, SW left packet on med/surge floor.
[2023-04-07 18:58] VITALS: RESP 16
--- NOTE | 2023-04-07 19:12 | PC.NURSE ---
Dressing to LLE noted clean dry and intact. RLE noted with clean dry scab, slight redness, swelling and warmth.
[2023-04-07 20:22] VITALS: BP 122/71; PULSE 68; RESP 16; TEMP 36.6; O2SAT 98
[2023-04-08] MEDS: CEFTRIAXONE 1,000 MG in 0.9 % SODIUM CHLORIDE 50 ML 200 MG IV (02:37)
[2023-04-08] MEDS: VANCOMYCIN HCL 1,500 MG in 0.9 % SODIUM CHLORIDE 500 ML 250 MG IV (02:59)
[2023-04-08 04:16] VITALS: BP 106/68; PULSE 68; RESP 16; TEMP 36.6; O2SAT 96
[2023-04-08 05:16] LABS: Basophils Percent Auto 0.2 % (0.2-2.0); Eosinophils Absolute Auto 0.2 10^3/uL (0.0-0.7); Eosinophils Percent Auto 4.2 % (0.9-7.0); Hematocrit 28.5 % (36.0-48.0); Hemoglobin 8.7 g/dL (12.0-16.0); Immature Granulocytes Abs Auto 0.02 10^3/uL (0.00-0.03); Immature Granulocytes Pct Auto 0.5 % (0.0-0.5); Lymphocytes Absolute Auto 0.7 10^3/uL (1.2-3.8); Mean Corpuscular HGB Conc 30.5 g/dL (29.9-35.2); Mean Corpuscular Hemoglobin 26.1 pg (26.7-34.0); Mean Corpuscular Volume 85.6 fL (81.0-99.0); Mean Platelet Volume 9.6 fL (9.5-13.5); Monocytes Absolute Auto 0.5 10^3/uL (0.3-0.8); Monocytes Percent Auto 12.8 % (1.7-12.0); Neutrophils Absolute Auto 2.7 10^3/uL (1.4-6.5); Neutrophils Percent Auto 65.3 % (43.0-75.0); Platelet Count 217 10^3/uL (150-450); Red Blood Count 3.33 10^6/uL (4.20-5.40); Red Cell Distribution Width 14.6 % (11.0-15.0); White Blood Count 4.1 10^3/uL (4.0-11.0)
[2023-04-08 05:22] LABS: Alanine Aminotransferase 17 U/L (14-59); Albumin Globulin Ratio 0.7; Albumin Level 2.1 g/dL (3.4-5.0); Alkaline Phosphatase 88 U/L (46-116); Aspartate Amino Transferase 26 U/L (15-37); BUN Creatinine Ratio 20.3; Bilirubin Total <0.1 mg/dL (0.2-1.0); Calcium 7.9 mg/dL (8.5-10.1); Carbon Dioxide 25.4 mmol/L (21.0-32.0); Chloride 109 mmol/L (98-107); Estimated GFR (African America >60 (>=60); Estimated GFR (Non-African Ame >60 (>=60); Globulin 3.1 g/dL; Glucose 93 mg/dL (74-106); Potassium 4.4 mmol/L (3.5-5.1); Sodium 142 mmol/L (136-145); Total Protein 5.2 g/dL (6.4-8.2)
--- NOTE | 2023-04-08 09:21 | PT.DAILY ---
Physical Therapy Daily Note PT Daily Note/Assess Start: 04/07/23 12:07 Freq: Status: Active Protocol: Document 04/08/23 09:13 CHRISTINAJAMAR (Rec: 04/08/23 09:21 JUANA [id number]) Physical Therapy Daily Note/Assessment Time In/Time Out Time In 08:48 Time Out 09:04 Pain In Pain Level 0 Pain Out Pain Level 0 Subjective Subjective Pt. ready to get out of bed and into chair. Pt. reports she has not walked at home for about a week or so. Therapeutic Exercise Time Therapeutic Exercise Minutes (minutes) 8 Therapeutic Exercise Units 0 Therapeutic Exercise Treatment Therapeutic Exercise Treatment Pt. instructed in keily LE seated ther ex in BS chair. Pt . able to complete 10 reps each. L LE noted to be shaky and have difficulty keeping in proper position for add/abd. Therapeutic Activity Time Therapeutic Activity Minutes (minutes) 8 Therapeutic Activity Units 1 Therapeutic Activity Treatment Therapeutic Activity Comments Supine to sit with HOB elevated, min A with cues for proper technique on what to grab and to scoot to EOB once seated. Sit to stand Min A x 2 for safety, pt. initially unsteady on feet. Assist to hold walker down as pt. has a tendency to lean backward and pull up walker. Amb 12 feet around bed to BS chair, Min A x2. VC to keep RW on ground vs picking it up to move. Pt. able to use step through gait pattern but L foot stays in PF . Pt. questioned about brace and reports she has 1 for each leg but the straps are broke so she can not use them. VC to reach back for chair and get properly alligned before sitting back. Total Physical Therapy Time Total Therapy Minutes 16 Total Physical Therapy Units 1
[2023-04-08] MEDS: NICOTINE 21 MG PATCH.TD24 TD (09:47)
[2023-04-08] MEDS: ENOXAPARIN SODIUM 40 MG/0.4 ML SYRINGE SUBQ (09:47)
[2023-04-08] MEDS: SERTRALINE HCL 100 MG TABLET PO (09:47)
[2023-04-08] MEDS: ENSURE HP 237 ML LIQUID PO (09:47)
[2023-04-08] MEDS: MODAFINIL 100 MG TABLET 200 MG PO (09:47)
[2023-04-08] MEDS: DALFAMPRIDINE 10 MG 10 EACH PO (09:49)
--- NOTE | 2023-04-08 13:09 | P.DS_ITS ---
DS: Providers Provider Date of admission: 04/05/23 22:25 Primary care physician: Non-Staff Physician, Consults: 04/05/23 Consult to Visual Merchandising Assistant Routine 04/05/23 23:52 Consult to Dietitian Routine Reason For Exam: Consult to Visual Merchandising Assistant Routine 04/05/23 23:57 Consult to Wound Care Routine Consulting Provider: Christi 04/06/23 08:26 Occupational Therapy Eval and Treat Routine Physical Therapy Eval and Treat Routine Attending physician on discharge: Shaikh Chelsy Discharging clinician: Shaikh Chelsy Anticipated date of discharge: 04/08/23 DS: Diagnosis Discharge Diagnosis (1) Cellulitis: Assessment and plan: Left LE cellulitis sec to Proteus - will d/c on oral ceftin Qualifiers: Laterality: left Site of cellulitis: extremity Site of cellulitis of extremity: lower extremity Qualified Code(s): L03.116 - Cellulitis of left lower limb (2) Acute cystitis with hematuria: Assessment and plan: sec to klebsiella. PATRIZIA to follow - will d/c on oral Ceftin (3) Generalized weakness: Assessment and plan: due to MS, failure to thrive, cellulitis, poor functional status - improved. D[facility]c [facility] for [facility]hab (4) Iron deficiency anemia: Assessment and plan: Outpatient f/u. Stable. Qualifiers: Iron deficiency anemia type: unspecified iron deficiency Qualified Code(s): D50.9 - Iron deficiency anemia, unspecified (5) Anxiety: Assessment and plan: Stable, controlled (6) Multiple sclerosis: Assessment and plan: Outpatient f/u with Neurology (7) Neurogenic incontinence: Assessment and plan: On vesicare. Outpatient f/u (8) Hypokalemia: Assessment and plan: Resolved (9) Adult failure to thrive: Assessment and plan: Will be discharged to [facility]. (10) Protein-calorie malnutrition, moderate: Assessment and plan: Software Configuration Engineer consult. Will need outpaitent f/u (11) Bilateral lower extremity edema: Assessment and plan: likely venous insufficiency. Outpatient f/u with Vein clinic Normal ECHO DS: Summary Hospital Course Hospital Course: Patient admitted for failure to thrive, cellulitis and UTI. Treated with IV abx. Had PT/OT eval. Urine cx positive for Klebsiella, wound cx positive for proteus. Will d/c on oral Ceftin. Chronic LE edema - likely from venous insufficiency - will need outpatient w/u and f/u with vein clinic US negative for DVT 2D ECHO negative for WMA, diastolic dysfunction, sig cardiac structural abnormality. Will be d/c home on oral ceftin Status at Discharge Functional status at discharge: uses cane/walker Overall status at discharge: patient is back to baseline Time Spent with Patient Time attestation: Total time spent providing and/or coordinating discharge services: Time spent: greater than 30 minutes Exam Narrative Exam Narrative: General: Patient is alert, and oriented to person, place and time with normal affect Head: atraumatic, acephalic Eyes: PERRLA, conjunctiva clear, no scleral icterus Mouth/Throat: very poor dentition Heart: Normal rate and rhythm, no murmurs/rubs/gallops Lungs: no audible wheezes, crackles and normal breath sounds all lung shelby Abdomen: Normal audible bowel sounds, no distension, No palpable masses, no organomegaly, no rebound/guarding/ or rigidity Musculoskeletal: muscle atrophy noted, ROM is limited Neuro: CN II-X grossly intact, normal sensation upper and lower extremities. Moving all four extremities Ext: B/l LE edema Skin: Left LE cellulitis - improved from before. No pain. Small lesion over RLE - also improved. Constitutional Vital Signs - 24 hr 04/07/23 14:00 04/07/23 18:58 04/07/23 20:22 Temperature 98.2 F 97.9 F Pulse Rate 77 68 Respiratory Rate 15 16 16 Blood Pressure [Right Arm] 126/62 H 122/71 H Pulse Oximetry 96 98 Oxygen Delivery Method Room Air Room Air 04/08/23 04:16 Temperature 97.8 F Pulse Rate 68 Respiratory Rate 16 Blood Pressure [Right Arm] 106/68 Pulse Oximetry 96 Oxygen Delivery Method Room Air DS: Data Data Completed and Pending Labs on day of discharge: Labs from last 24 hours 04/08/23 04/07/23 04:15 14:53 WBC 4.1 RBC 3.33 L Hgb 8.7 L Hct 28.5 L MCV 85.6 MCH 26.1 L MCHC 30.5 RDW 14.6 Plt Count 217 MPV 9.6 Neut % (Auto) 65.3 Lymph % (Auto) 17.0 L Nuckolls % (Auto) 12.8 H Eos % (Auto) 4.2 Baso % (Auto) 0.2 Neut # (Auto) 2.7 Lymph # (Auto) 0.7 L Nuckolls # (Auto) 0.5 Eos # (Auto) 0.2 Baso # (Auto) 0.0 Abs Immat Gran (auto) 0.02 Imm/Tot Granulo (auto) 0.5 Sodium 142 Potassium 4.4 Chloride 109 H Carbon Dioxide 25.4 Anion Gap 12.0 BUN 15.0 Creatinine 0.74 Est GFR ( Amer) >60 Est GFR (Non-Af Amer) >60 BUN/Creatinine Ratio 20.3 Glucose 93 Calcium 7.9 L Total Bilirubin <0.1 L AST 26 ALT 17 Alkaline Phosphatase 88 Total Protein 5.2 L Albumin 2.1 L Globulin 3.1 Albumin/Globulin Ratio 0.7 Vancomycin Trough 17.9 Preliminary micro results at discharge 04/06/23 00:45 Wound Culture - Preliminary Leg Left Proteus mirabilis 04/06/23 01:19 - Preliminary Urine,Clean Catch Klebsiella oxytoca 04/05/23 20:45 Blood Culture Result 1 - Preliminary Blood NO GROWTH AT 36-48 HOURS. FINAL TO FOLLOW. 04/05/23 20:20 Blood Culture Result 1 - Preliminary Blood NO GROWTH AT 36-48 HOURS. FINAL TO FOLLOW. Discharge Plan Discharge Disposition: Xfer SNF Condition: Good Discharge Medications: New cefuroxime axetil 500 mg tablet 500 mg PO BID 7 Days Qty: 14 0RF Continued baclofen 20 mg tablet 20 mg PO Q8H dalfampridine 10 mg tablet extended release 12 hr 10 mg PO Q12H modafinil 200 mg tablet 200 mg PO DAILY sertraline 100 mg tablet 100 mg PO DAILY solifenacin 10 mg tablet 10 mg PO DAILY cholecalciferol (vitamin D3) 1,250 mcg (50,000 unit) capsule 50,000 unit PO .COMPLEX Rx Instructions: 50,000 units orally every Monday; 4 aminopyridine 10mg PO TID Home Lighting Adviser/Electronic Test Technician Instructions[facility] Forms: Portal Instructions
[2023-04-08] MEDS: SOLIFENACIN SUCCINATE 10 MG TABLET PO (13:29)
== END 2023-04-08 16:00 ==
LOC: ER 21:40 → MS 22:29
PROVIDERS: Family Medicine; Physician Assistant; Admitting Provider Internal Medicine; Emergency Provider Emergency Medicine; Visit Provider Internal Medicine
DX: L03.116 Cellulitis of left lower limb (principal); B96.4 Proteus (mirabilis) (morganii) as the cause of diseases classified elsewhere; N30.01 Acute cystitis with hematuria; B96.1 Klebsiella pneumoniae [K. pneumoniae] as the cause of diseases classified elsewhere; G35 Multiple sclerosis; R53.1 Weakness; D50.9 Iron deficiency anemia, unspecified; F41.9 Anxiety disorder, unspecified; N39.498 Other specified urinary incontinence; E87.6 Hypokalemia; R62.7 Adult failure to thrive; E44.0 Moderate protein-calorie malnutrition; R60.0 Localized edema; Z68.29 Body mass index [BMI] 29.0-29.9, adult; F17.210 Nicotine dependence, cigarettes, uncomplicated; Z79.899 Other long term (current) drug therapy
CPT/HCPCS: 36415; 51702; 80048; 80053; 80061; 80202; 81003; 81015; 83605; 83735; 83880; 84134; 85025; 85610; 85652; 85730; 86140; 87040; 87070; 87086; 87150; 87186; 93005; 93306; 93971; 96365; 96366; 96367; 96372; 96375; 97110; 97163; 97165; 97530; 97535; 99285; G0378; J3370; Q3014

== ENCOUNTER 2023-05-19 02:06 | Outpatient (REF) | payer MEDICARE, SELFPAY ==
[2023-05-19 08:59] LABS: Basophils Percent Auto 0.5 % (0.2-2.0); Eosinophils Absolute Auto 0.5 10^3/uL (0.0-0.7); Eosinophils Percent Auto 11.9 % (0.9-7.0); Hematocrit 32.5 % (36.0-48.0); Hemoglobin 9.9 g/dL (12.0-16.0); Immature Granulocytes Abs Auto 0.02 10^3/uL (0.00-0.03); Immature Granulocytes Pct Auto 0.5 % (0.0-0.5); Lymphocytes Absolute Auto 0.8 10^3/uL (1.2-3.8); Lymphocytes Percent Auto 20.9 % (20.5-60.0); Mean Corpuscular HGB Conc 30.5 g/dL (29.9-35.2); Mean Corpuscular Hemoglobin 26.6 pg (26.7-34.0); Mean Corpuscular Volume 87.4 fL (81.0-99.0); Mean Platelet Volume 10.5 fL (9.5-13.5); Monocytes Absolute Auto 0.5 10^3/uL (0.3-0.8); Monocytes Percent Auto 13.4 % (1.7-12.0); Neutrophils Absolute Auto 2.1 10^3/uL (1.4-6.5); Neutrophils Percent Auto 52.8 % (43.0-75.0); Platelet Count 180 10^3/uL (150-450); Red Blood Count 3.72 10^6/uL (4.20-5.40); White Blood Count 3.9 10^3/uL (4.0-11.0)
[2023-05-19 10:11] LABS: Alanine Aminotransferase 8 U/L (14-59); Albumin Level 3.3 g/dL (3.4-5.0); Alkaline Phosphatase 95 U/L (46-116); Anion Gap 11.3; Aspartate Amino Transferase 15 U/L (15-37); BUN Creatinine Ratio 32.9; Bilirubin Total 0.2 mg/dL (0.2-1.0); Calcium 8.4 mg/dL (8.5-10.1); Chloride 108 mmol/L (98-107); Estimated GFR (African America >60 (>=60); Estimated GFR (Non-African Ame >60 (>=60); Globulin 3.4 g/dL; Glucose 98 mg/dL (74-106); Potassium 4.3 mmol/L (3.5-5.1); Sodium 143 mmol/L (136-145); Total Protein 6.7 g/dL (6.4-8.2)
== END 2023-05-19 02:07 | disposition home or self-care (01) ==
LOC: LAB 02:06
PROVIDERS: Visit Provider Family Medicine
DX: G35 Multiple sclerosis (principal)
CPT/HCPCS: 36415; 80053; 85025

== ENCOUNTER 2023-08-21 16:20 | Observation (INO) | payer MEDICARE, MEDICAID, SELFPAY ==
[2023-08-21] VITALS (19 sets, daily range): BP systolic 100–151; BP diastolic 64–82; PULSE 74–84; RESP 13–25; TEMP 36.6–36.8; O2SAT 94–100; BMI 34.2; BMI 37.8
--- NOTE | 2023-08-21 16:25 | US_ITS ---
The [address] [address] Patient Name: SRUTHI GRIGGS MRN: [id number] date: 1975 Sex: F Assigned Patient Location: ED.MAIN Current Patient Location: ED.MAIN Accession/Order Number: [id number] Exam Date: 08/21/2023 17:35 Report Date: 08/21/2023 18:59 At the request of: MIRIAN GLEASON Procedure: US venous doppler LE LT EXAM: US venous doppler LE LT HISTORY: DVT COMPARISON: 04/05/2023 TECHNIQUE: Evaluation of the deep veins of the left lower extremity was performed utilizing B-mode, color flow and spectral analysis. FINDINGS: The visualized vessels comprising the deep venous systems from the common femoral vein through the calf veins demonstrate appropriate compressibility, spontaneous color Doppler flow, and augmentation of flow on spectral Doppler with distal compression. Noncompressible left superficial saphenous vein, likely representing thrombophlebitis. Additional findings: Lower extremity edema is noted. US/US venous doppler LE LT IMPRESSION: No sonographic evidence of deep venous thrombosis of the left lower extremity. Left superficial saphenous vein thrombophlebitis. Electronically authenticated by: HANNAH HAAS Date: 08/21/2023 18:59
--- NOTE | 2023-08-21 16:25 | ECG_ITS ---
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
--- NOTE | 2023-08-21 16:29 | ED_ITS ---
HPI - General Adult General Chief complaint: Weakness Stated complaint: MS FLARE Time Seen by Provider: 08/21/23 16:25 History of Present Illness HPI narrative: patient is a 48-year-old female presents to the emergency department by ambulance for the evaluation of increasing weakness and difficulty ambulating at home. Patient has a history of MS, she is well-known to this emergency department. She states she was not able to get up and walk to the bathroom for the last several days and has just been lying around the home. EMS reports that the house is bare, unfurnished. Patient denies any pain, nausea, vomiting, fevers, chills. She is noted to have significant swelling and redness surrounding the wound to the left anterior tibia. She does not know how long this has been present. She denies any falls or injuries. She has not been eating and drinking because she has not been able to get up and move around. She is not currently on steroids, she states she had an MS exacerbation last month similarly and was on steroids, she went to the [facility] for rehab before she was able to go home. Related Data Home Medications Medication Instructions Recorded Confirmed 4 aminopyridine 10mg PO TID 04/05/23 baclofen 20 mg tablet 20 mg PO Q8H muscle spasm 04/05/23 04/06/23 cholecalciferol (vitamin D3) 1,250 50,000 unit PO .COMPLEX 04/05/23 04/05/23 mcg (50,000 unit) capsule dalfampridine 10 mg 10 mg PO Q12H 04/05/23 04/05/23 tablet,extended release,12 hr modafinil 200 mg tablet 200 mg PO DAILY 04/05/23 04/05/23 sertraline 100 mg tablet 100 mg PO DAILY 04/05/23 04/05/23 solifenacin 10 mg tablet 10 mg PO DAILY 04/05/23 04/05/23 Previous Rx's Medication Instructions Recorded cefuroxime axetil 500 mg tablet 500 mg PO BID 7 days #14 tabs 04/08/23 Allergies Allergy/AdvReac Type Severity Reaction Status Date / Time No Known Drug Allergies Allergy Verified 08/21/23 16:35 Review of Systems ROS Constitutional Denies: fever or chills Ears, nose, mouth, and throat Denies: throat pain Cardiovascular Denies: chest pain Respiratory Denies: shortness of breath or cough Gastrointestinal Denies: nausea or vomiting Genitourinary Denies: painful urination Musculoskeletal Reports: extremity swelling; Denies: back pain Integumentary/Breast Reports: redness Endocrine Denies: excessive urination [facility] Medical History Social History Smoking status: Former smoker Gender Identity: female Exam Narrative Exam Narrative: Gen.: Awake, alert, in no distress Head: Normocephalic, atraumatic ENT: Moist mucous membranes Respiratory: No respiratory distress, lungs clear bilaterally Cardio: Regular rate and rhythm Gastrointestinal: Abdomen is soft, nondistended and nontender to palpation Extremities: limited motion of the lower extremities due to generalized weakness, left anterior tibia with a 1.5 cm circular wound surrounded by erythema and moderate swelling of the left calf. Erythema is circumferential. No active drainage or fluctuance noted Psych: Normal mood and affect Neuro: No focal neuro deficit Skin: Warm, dry, intact; wound with surrounding redness to the left leg as described above Constitutional Vital Signs, click to edit/add: Last Vital Signs Temp 98.2 F 08/21/23 16:32 Pulse 78 08/21/23 19:00 Resp 21 08/21/23 19:00 BP 127/79 08/21/23 19:00 Pulse Ox 97 08/21/23 19:00 O2 Del Method Room Air 08/21/23 16:32 Course Vital Signs Vital signs: Vital Signs Temperature 98.2 F 08/21/23 16:32 Pulse Rate 84 08/21/23 16:32 Respiratory Rate 18 08/21/23 16:32 Blood Pressure 116/76 08/21/23 16:32 Pulse Oximetry 99 08/21/23 16:32 Oxygen Delivery Method Room Air 08/21/23 16:32 Temperature 98.2 F 08/21/23 16:32 Pulse Rate 78 08/21/23 19:00 Respiratory Rate 21 08/21/23 19:00 Blood Pressure 127/79 08/21/23 19:00 Pulse Oximetry 97 08/21/23 19:00 Oxygen Delivery Method Room Air 08/21/23 16:32 Medical Decision Making MDM Narrative Medical decision making narrative: patient with stable labs studies, concentrated urine, she is treated with IV fluids. Impaired coverage for presumed cellulitis of the left lower extremity was given was Zosyn and vancomycin. She does not meet sepsis criteria. Patient is generally weak and unable to transfer or ambulate on her own. She will require admission for PT/OT evaluation and possible placement. Ultrasound of the left lower extremity shows a thrombus in the left superficial saphenous vein. Patient with no focal medical complaints in the Emergency Room other than her generalized weakness. She was cleaned by nursing staff, she is still in poor hygiene, unable to care for herself. she is admitted to the hospitalist. Medical Records Medical records reviewed: Yes I reviewed the patient's medical records Lab Data Lab results reviewed: Yes I reviewed the patient's lab results Labs: Lab Results 08/21/23 08/21/23 Range/Units 16:49 17:05 WBC 6.8 (4.0-11.0) 10^3/uL RBC 4.14 L (4.20-5.40) 10^6/uL Hgb 11.7 L (12.0-16.0) g/dL Hct 37.5 (36.0-48.0) % MCV 90.6 (81.0-99.0) fL MCH 28.3 (26.7-34.0) pg MCHC 31.2 (29.9-35.2) g/dL RDW 14.6 (11.0-15.0) % Plt Count 213 (150-450) 10^3/uL MPV 10.0 (9.5-13.5) fL Neut % (Auto) 77.6 H (43.0-75.0) % Lymph % (Auto) 10.1 L (20.5-60.0) % [place]chran % (Auto) 9.2 (1.7-12.0) % Eos % (Auto) 2.2 (0.9-7.0) % Baso % (Auto) 0.3 (0.2-2.0) % Neut # (Auto) 5.3 (1.4-6.5) 10^3/uL Lymph # (Auto) 0.7 L (1.2-3.8) 10^3/uL [place]ran # (Auto) 0.6 (0.3-0.8) 10^3/uL Eos # (Auto) 0.2 (0.0-0.7) 10^3/uL Baso # (Auto) 0.0 (0.0-0.1) 10^3/uL Abs Immat Gran (auto) 0.04 H (0.00-0.03) 10^3/uL Imm/Tot Granulo (auto) 0.6 H (0.0-0.5) % ESR 78 H (<=20) mm/hr Sodium 140 (136-145) mmol/L Potassium 3.7 (3.5-5.1) mmol/L Chloride 103 (98-107) mmol/L Carbon Dioxide 29.0 (21.0-32.0) mmol/L Anion Gap 11.7 BUN 17.0 (7.0-18.0) mg/dL Creatinine 0.66 (0.55-1.02) mg/dL Est GFR ( Amer) >60 (>=60) Est GFR (Non-Af Amer) >60 (>=60) BUN/Creatinine Ratio 25.8 Glucose 90 (74-106) mg/dL Lactate 1.3 (0.4-2.0) mmol/L Calcium 8.8 (8.5-10.1) mg/dL Magnesium 1.8 (1.8-2.4) mg/dL Total Bilirubin 0.3 (0.2-1.0) mg/dL AST 47 H (15-37) U/L ALT 26 (14-59) U/L Alkaline Phosphatase 91 (46-116) U/L Troponin I High Sens <4.0 L (4.0-51.3) pg/mL C-Reactive Protein 2.2 H (<=1.0) mg/dL Total Protein 7.6 (6.4-8.2) g/dL Albumin 3.2 L (3.4-5.0) g/dL Globulin 4.4 g/dL Albumin/Globulin Ratio 0.7 Urine Color Yellow (YELLOW) Urine Clarity Slightly cloudy A (CLEAR) Urine pH 6.0 (5.0-9.0) Ur Specific [place] >=1.030 A (1.005-1.025) Urine Protein Trace (NEG/TRACE) mg/dL Urine Glucose (UA) Negative (NEGATIVE) mg/dL Urine Ketones Trace A (NEGATIVE) mg/dL Urine Occult Blood Moderate A (NEGATIVE) Urine Nitrite Negative (NEGATIVE) Urine Bilirubin Negative (NEGATIVE) Urine Urobilinogen 0.2 (0.2-1.0) EU/dL Ur Leukocyte Esterase Negative (NEGATIVE) Urine RBC 2-5 A (0-2) #/HPF Urine WBC None seen (NONE SEEN) #/HPF Ur Squamous Epith Cells Few A (NONE/RARE) #/LPF Urine Crystals None seen (None Seen) #/HPF Urine Bacteria None seen (NONE SEEN) #/HPF Urine Casts None seen (NONE SEEN) #/LPF Urine Mucus None seen (NONE SEEN) Ur Culture Indicated? No Imaging Data Venous US: Radiologist's impression: thrombus in the superficial saphenous vein ECG Data Attestation: I personally reviewed and interpreted this ECG as follows: (normal sinus rhythm at a rate of seventy-eight, no acute ST elevation or ectopy. EKG reviewed by attending physician.) Discharge Plan Discharge Chief Complaint: Weakness Patient Disposition: Admitted as Observation Time of Disposition Decision: 18:30
[2023-08-21 16:56] LABS: Basophils Percent Auto 0.3 % (0.2-2.0); Eosinophils Absolute Auto 0.2 10^3/uL (0.0-0.7); Eosinophils Percent Auto 2.2 % (0.9-7.0); Hematocrit 37.5 % (36.0-48.0); Hemoglobin 11.7 g/dL (12.0-16.0); Immature Granulocytes Abs Auto 0.04 10^3/uL (0.00-0.03); Immature Granulocytes Pct Auto 0.6 % (0.0-0.5); Lymphocytes Absolute Auto 0.7 10^3/uL (1.2-3.8); Lymphocytes Percent Auto 10.1 % (20.5-60.0); Mean Corpuscular HGB Conc 31.2 g/dL (29.9-35.2); Mean Corpuscular Hemoglobin 28.3 pg (26.7-34.0); Mean Corpuscular Volume 90.6 fL (81.0-99.0); Monocytes Absolute Auto 0.6 10^3/uL (0.3-0.8); Monocytes Percent Auto 9.2 % (1.7-12.0); Neutrophils Absolute Auto 5.3 10^3/uL (1.4-6.5); Neutrophils Percent Auto 77.6 % (43.0-75.0); Platelet Count 213 10^3/uL (150-450); Red Blood Count 4.14 10^6/uL (4.20-5.40); Red Cell Distribution Width 14.6 % (11.0-15.0); White Blood Count 6.8 10^3/uL (4.0-11.0)
[2023-08-21] MEDS: METHYLPREDNISOLONE SOD SUCC PF 125 MG/2 ML VIAL IVP (16:57)
[2023-08-21] MEDS: 0.9 % SODIUM CHLORIDE 1,000 ML 1000 ML IV (16:57)
[2023-08-21 17:03] LABS: Erythrocyte Sedimentation Rate 78 mm/hr (<=20)
[2023-08-21 17:14] LABS: Lactate/Lactic Acid 1.3 mmol/L (0.4-2.0)
[2023-08-21 17:23] LABS: Alanine Aminotransferase 26 U/L (14-59); Albumin Globulin Ratio 0.7; Albumin Level 3.2 g/dL (3.4-5.0); Alkaline Phosphatase 91 U/L (46-116); Anion Gap 11.7; Aspartate Amino Transferase 47 U/L (15-37); BUN Creatinine Ratio 25.8; Bilirubin Total 0.3 mg/dL (0.2-1.0); C Reactive Protein 2.2 mg/dL (<=1.0); Calcium 8.8 mg/dL (8.5-10.1); Chloride 103 mmol/L (98-107); Estimated GFR (African America >60 (>=60); Estimated GFR (Non-African Ame >60 (>=60); Globulin 4.4 g/dL; Glucose 90 mg/dL (74-106); Magnesium 1.8 mg/dL (1.8-2.4); Potassium 3.7 mmol/L (3.5-5.1); Sodium 140 mmol/L (136-145); Total Protein 7.6 g/dL (6.4-8.2); Troponin I High Sensitivity <4.0 pg/mL (4.0-51.3)
[2023-08-21 17:24] LABS: Bilirubin Urine NEGATIVE (NEGATIVE); Blood Urine MODERATE (NEGATIVE); Color Urine YELLOW (YELLOW); Glucose Urine UA NEGATIVE (NEGATIVE); Ketones Urine TRACE mg/dL (NEGATIVE); Leukocyte Esterase Urine NEGATIVE (NEGATIVE); Nitrite Urine NEGATIVE (NEGATIVE); Protein Urine TRACE mg/dL (NEG/TRACE); Specific Gravity Urine >=1.030 (1.005-1.025); Urobilinogen Urine 0.2 EU/dL (0.2-1.0)
[2023-08-21 17:27] LABS: Clarity Urine SLIGHTLY CLOUDY (CLEAR); Urine Microscopic Indicated YES
[2023-08-21 17:28] LABS: Bacteria Urine NONE SEEN #/HPF (NONE SEEN); Cast Seen? NONE SEEN #/LPF (NONE SEEN); Crystals Seen? None Seen #/HPF (None Seen); Mucus Urine NONE SEEN (NONE SEEN); Squamous Epithelial Cell Urine FEW #/LPF (NONE/RARE); Urine Culture Indicated NO; WBC Urine NONE SEEN #/HPF (NONE SEEN)
[2023-08-21] MEDS: PIPERACILLIN SODIUM/TAZOBACTAM 4.5 GM in 0.9 % SODIUM CHLORIDE 50 ML IV (18:35)
[2023-08-21] MEDS: VANCOMYCIN HCL 1,500 MG in 0.9 % SODIUM CHLORIDE 500 ML 250 MG IV (18:53)
--- NOTE | 2023-08-21 19:40 | P.PN_ITS ---
Exam Constitutional Vital Signs, click to edit/add: Last Vital Signs Temp 98.2 F 08/21/23 16:32 Pulse 78 08/21/23 19:00 Resp 21 08/21/23 19:00 BP 127/79 08/21/23 19:00 Pulse Ox 97 08/21/23 19:00 O2 Del Method Room Air 08/21/23 16:32 Documenting provider has reviewed patient's vital signs: yes Common normals: no apparent distress, average body habitus, oriented x3, no limitations, healthy appearing, alert and well nourished [facility] Common normals: normocephalic, head/scalp atraumatic, hearing grossly normal bilaterally, external ears normal, external nose normal, moist oral mucous membranes, oropharynx normal, dentition normal and gingiva normal Eye Common normals: PERRL and EOMs intact bilaterally Neck & C-Spine Common normals: full ROM, supple and no meningeal signs Chest Common normals: inspection of chest normal and palpation of chest normal Respiratory Common normals: normal respiratory effort, no retractions, no use of accessory muscles and clear to auscultation bilaterally Cardio Common normals: no JVD, regular rate, regular rhythm, S1 normal heart sound, S2 normal heart sound, no gallops, no clicks, no murmurs, no rub and peripheral pulses 2+ throughout GI Common normals: Normal to inspection, nondistended, normoactive bowel sounds present, soft to palpation and non-tender Extremity Other: Erythema to LLE between the ankle and mid-tibia. There is an area of ecchymosis on the lateral aspect of the tibia. Mildly warmer than the right side with no tenderness to palpation. Neuro Common normals: oriented x3, CN's II-XII intact bilaterally, moves all extremities, no sensory deficits noted, deep tendon reflexes 2+ bilaterally and gait normal Motor exam: strength abnormal Psych Common normals: mental status grossly normal, thought process normal, cooperative, affect normal, speech normal and activity/motor behavior normal Progress Note: Objective Labs Labs: Short CBC 08/21/23 Range/Units 16:49 WBC 6.8 (4.0-11.0) 10^3/uL Hgb 11.7 L (12.0-16.0) g/dL Hct 37.5 (36.0-48.0) % Plt Count 213 (150-450) 10^3/uL BMP 08/21/23 16:49 Sodium 140 Potassium 3.7 Chloride 103 Carbon Dioxide 29.0 BUN 17.0 Creatinine 0.66 Glucose 90 Calcium 8.8 Liver Function 08/21/23 Range/Units 16:49 Total Bilirubin 0.3 (0.2-1.0) mg/dL AST 47 H (15-37) U/L ALT 26 (14-59) U/L Alkaline Phosphatase 91 (46-116) U/L Albumin 3.2 L (3.4-5.0) g/dL Urine 08/21/23 Range/Units 17:05 Urine Color Yellow (YELLOW) Urine Clarity Slightly cloudy A (CLEAR) Urine pH 6.0 (5.0-9.0) Ur Specific [place] >=1.030 A (1.005-1.025) Urine Protein Trace (NEG/TRACE) mg/dL Urine Glucose (UA) Negative (NEGATIVE) mg/dL Progress Note: A&P Assessment and Plan (1) Cellulitis of left leg: Assessment and Plan: The patient presents with weakness and has cellulitis to her left lower extremity. Although she is not septic, she likely is more susceptible to a rapid worsening due to her history of MS. The cellulitis may be due to the leg brace that she wears. - admit to hospitalist service - c/w cefazolin and vancomycin - f/u blood cultures - c/w IVF - pain control (2) Generalized weakness: Assessment and Plan: The patient has weakness secondary to infection and deconditioning. - PT/OT (3) Adult failure to thrive: (4) Superficial thrombosis of left lower extremity: Assessment and Plan: No need for anticoagulation. Plan Multiple Sclerosis Dr. French at [facility] is her neurologist. Unclear if she is having a flare, but her ESR is elevated. For now I think it is prudent to continue the steroids that were started in the ED. - c/w methylprednisolone - touch base with Dr. French for any recommendations - c/w dalfampridine - c/w solefenacin for urinary symptoms 4. Depression - c/w sertraline Telemedicine Attestation Telemedicine Attestation I conducted this encounter from [facility] via secure live, [id number] video conference with the patient, located at [facility] chandler [place]. Prior to the interview, the risks and benefits of telemedicine were discussed with the patient and verbal consent was obtained.
--- NOTE | 2023-08-21 20:23 | P.PN_ITS ---
Progress Note: Subjective Subjective Interval history: ERROR - duplicate Exam Constitutional Vital Signs, click to edit/add: Last Vital Signs Temp 98.2 F 08/21/23 16:32 Pulse 78 08/21/23 19:00 Resp 21 08/21/23 19:00 BP 127/79 08/21/23 19:00 Pulse Ox 97 08/21/23 19:00 O2 Del Method Room Air 08/21/23 16:32 Progress Note: Objective Labs Labs: Short CBC 08/21/23 Range/Units 16:49 WBC 6.8 (4.0-11.0) 10^3/uL Hgb 11.7 L (12.0-16.0) g/dL Hct 37.5 (36.0-48.0) % Plt Count 213 (150-450) 10^3/uL BMP 08/21/23 16:49 Sodium 140 Potassium 3.7 Chloride 103 Carbon Dioxide 29.0 BUN 17.0 Creatinine 0.66 Glucose 90 Calcium 8.8 Liver Function 08/21/23 Range/Units 16:49 Total Bilirubin 0.3 (0.2-1.0) mg/dL AST 47 H (15-37) U/L ALT 26 (14-59) U/L Alkaline Phosphatase 91 (46-116) U/L Albumin 3.2 L (3.4-5.0) g/dL Urine 08/21/23 Range/Units 17:05 Urine Color Yellow (YELLOW) Urine Clarity Slightly cloudy A (CLEAR) Urine pH 6.0 (5.0-9.0) Ur Specific [place] >=1.030 A (1.005-1.025) Urine Protein Trace (NEG/TRACE) mg/dL Urine Glucose (UA) Negative (NEGATIVE) mg/dL Telemedicine Attestation Telemedicine Attestation I conducted this encounter from [] via secure live, [id number] video conference with the patient, located at [facility] with []. Prior to the interview, the risks and benefits of telemedicine were discussed with the patient and verbal consent was obtained.
[2023-08-21] MEDS: CEFAZOLIN SODIUM/DEXTROSE,ISO 1 GM/50 ML IV.SOLN IV (22:20)
[2023-08-21] MEDS: METHYLPREDNISOLONE SOD SUCC PF 40 MG/ML VIAL IVP (22:21)
[2023-08-21] MEDS: BACLOFEN 10 MG TABLET 20 MG PO (22:21)
[2023-08-22] MEDS: CEFAZOLIN SODIUM/DEXTROSE,ISO 1 GM/50 ML IV.SOLN IV (04:39)
[2023-08-22] MEDS: BACLOFEN 10 MG TABLET 20 MG PO ×3 (04:39→22:01)
[2023-08-22] MEDS: METHYLPREDNISOLONE SOD SUCC PF 40 MG/ML VIAL IVP ×2 (04:39→10:01)
[2023-08-22 05:21] VITALS: BP 99/60; PULSE 71; RESP 20; TEMP 36.4; O2SAT 92
[2023-08-22 05:49] LABS: Hematocrit 33.2 % (36.0-48.0); Hemoglobin 10.3 g/dL (12.0-16.0); Mean Corpuscular Volume 90.2 fL (81.0-99.0); Mean Platelet Volume 10.2 fL (9.5-13.5); Platelet Count 201 10^3/uL (150-450); Red Blood Count 3.68 10^6/uL (4.20-5.40); Red Cell Distribution Width 14.6 % (11.0-15.0); White Blood Count 7.1 10^3/uL (4.0-11.0)
[2023-08-22 06:14] LABS: Alanine Aminotransferase 20 U/L (14-59); Albumin Globulin Ratio 0.8; Albumin Level 2.7 g/dL (3.4-5.0); Alkaline Phosphatase 82 U/L (46-116); Anion Gap 13.4; Aspartate Amino Transferase 25 U/L (15-37); BUN Creatinine Ratio 29.2; Bilirubin Total 0.2 mg/dL (0.2-1.0); Carbon Dioxide 25.1 mmol/L (21.0-32.0); Chloride 107 mmol/L (98-107); Estimated GFR (African America >60 (>=60); Estimated GFR (Non-African Ame >60 (>=60); Globulin 3.6 g/dL; Glucose 134 mg/dL (74-106); Potassium 3.5 mmol/L (3.5-5.1); Sodium 142 mmol/L (136-145); Total Protein 6.3 g/dL (6.4-8.2)
[2023-08-22 06:42] LABS: Band Neutrophils Absolute 0.2 10^3/uL (0.0-0.3); Lymphocytes Absolute Manual 0.56 10^3/uL (1.20-3.80); Monocytes Absolute Manual 0.14 10^3/uL (0.30-0.80); Segmented Neut Absolute Manual 6.17 10^3/uL (1.4-6.5)
[2023-08-22] MEDS: SERTRALINE HCL 100 MG TABLET PO (09:33)
[2023-08-22] MEDS: DALFAMPRIDINE 10 MG 10 EACH PO ×2 (09:34→22:01)
[2023-08-22] MEDS: MODAFINIL 100 MG TABLET 200 MG PO (09:34)
[2023-08-22] MEDS: SOLIFENACIN SUCCINATE 10 MG TABLET PO (09:35)
[2023-08-22] MEDS: CEFTRIAXONE 1,000 MG in 0.9 % SODIUM CHLORIDE 50 ML 100 MG IV (09:51)
[2023-08-22] MEDS: VANCOMYCIN HCL 2,000 MG in 0.9 % SODIUM CHLORIDE 500 ML 250 MG IV ×2 (10:46→23:07)
[2023-08-22] MEDS: RIVAROXABAN 10 MG TABLET PO (12:03)
--- NOTE | 2023-08-22 12:32 | CM.NOTE ---
Rounded with Dr. Valentino then nursing reports patient did not do well with therapy. If patient is needing a SNF, pt. is willing to return to [facility] where she was recently discharged from to home. Nursing also reports the patient is current with [facility]. Pt. denies any other needs or questions at this time. health practice manager aware of patient choice if SNF needed of [facility].
--- NOTE | 2023-08-22 12:40 | P.HP_ITS ---
Seen and examined. Case d/w AGUSTO Mckenzie. Reviewed medical records. Agree with her findings, treatment plan Exam: Laying in bed, comfortable LUE 4/5, LLE 4/5, No weakness on right side. Mild dysarthria at baseline. AOX 3 Left Leg: Discrete area of induration/erythema on left leg Left leg SVT Left Leg Cellulitis MS flare/exacerbation C/w IV solumedrol. Using Xarelto for left leg SVT as poor functional status, relatively immobile and at high risk of progression. PT/OT eval, suspect she will need rehab as poor mobility, generalized weakness. Oral abx for cellulitis. H&P: HPI History of Present Illness Chief complaint: MS FLARE Narrative: Date/time of exam 08/22/23929 This is a 48-year-old female patient with a past medical history as outlined below including chronic multiple sclerosis, who reported to the ED yesterday afternoon complaining of severe weakness and inability to ambulate. She had just been released from a local SNF facility where she had been admitted for the last several months for strengthening. Home health services were ordered at discharge but have not yet been to the home to admit the patient. Work-up in the ED was mostly unremarkable but did have an elevated CRP (2.2) and chronic left mallory wound that appeared to have surrounding cellulitis. Ultrasou nd of the left lower extremity revealed superficial venous thrombosis but no DVT. She was admitted to the hospitalist service yesterday evening for suspected cellulitis and suspected acute MS flare. At the time of my exam the patient is resting in bed visiting with family. She reports inability to transfer or ambulate since discharge from a local SNF and has been mostly sitting in a wheelchair for the last 4 days. It is unclear if this is truly an acute exacerbation of her MS or represents her new normal. PT evaluation is still pending at this time. Her lower extremity wound appears chronic but does have some equivocally purulent drainage. Surrounding erythema does not currently appear like cellulitis, but more like chronic venous stasis changes. We will treat the patient for a mild MS flare and give her antibiotics for the wound and consult wound care services for further recommendations. Review of Systems ROS Status of ROS 10 or more systems reviewed and unremarkable except as noted in history and below [facility] Medical History (Updated 08/22/23 @ 12:53 by Magaly Srivastava NP) Adult failure to thrive ?R62.7 - Adult failure to thrive (ICD-10) Anxiety ?F41.9 - Anxiety disorder, unspecified (ICD-10) Bilateral lower extremity edema ?R60.0 - Localized edema (ICD-10) Generalized weakness ?R53.1 - Weakness (ICD-10) Iron deficiency anemia ?D50.9 - Iron deficiency anemia, unspecified (ICD-10) Multiple sclerosis ?G35 - Multiple sclerosis (ICD-10) Neurogenic incontinence ?N31.9 - Neuromuscular dysfunction of bladder, unspecified (ICD-10) Protein-calorie malnutrition, moderate ?E44.0 - Moderate protein-calorie malnutrition (ICD-10) Family History Grandmother Family history of diabetes mellitus Family history of hypertension Social History Within the past year, how often did you have a drink containing alcohol: never Score interpretation: A score less than 3 is consistent with normal alcohol consumption. Smoking status: Current every day smoker Non-prescribed substance use: denies use Previous occupational history: disabled Highest level of school completed/degree received: high school graduate Are you now , , , , never or living with a partner: don't know In a typical week, how many times do you talk on the telephone with family, friends, or neighbors: 3 or more times per week How often do you get together with friends or relatives: twice per week How often do you attend yazdanism or roman catholic services: never Do you belong to any clubs or organizations such as yazdanism groups unions, fraternal or athletic groups, or school groups: no Total score: 1 Score interpretation: A score of less than or equal to 1 indicates the most socially isolated. Little interest or pleasure in doing things: not at all Feeling down, depressed, or hopeless: not at all Feel stressed/tense/nervous/anxious/difficulty sleeping: not at all Do you think of yourself as: straight/heterosexual Gender Identity: female Meds Home Medications and Allergies Home Medications Medication Instructions Recorded Confirmed Type baclofen 20 mg tablet 20 mg PO Q8H muscle spasm 04/05/23 08/21/23 History cholecalciferol (vitamin D3) 1,250 50,000 unit PO .COMPLEX 04/05/23 08/21/23 History mcg (50,000 unit) capsule dalfampridine 10 mg 10 mg PO Q12H 04/05/23 08/21/23 History tablet,extended release,12 hr modafinil 200 mg tablet 200 mg PO DAILY 04/05/23 08/21/23 History sertraline 100 mg tablet 100 mg PO DAILY 04/05/23 08/21/23 History solifenacin 10 mg tablet 10 mg PO DAILY 04/05/23 08/21/23 History rivaroxaban 10 mg tablet (Xarelto) 10 mg PO DAILY #30 tabs 08/22/23 Rx sulfamethoxazole 800 1 tab PO BID 10 days #20 tabs 08/22/23 Rx mg-trimethoprim 160 mg tablet (Bactrim DS) Allergies Allergy/AdvReac Type Severity Reaction Status Date / Time No Known Drug Allergies Allergy Verified 08/21/23 16:35 Exam Constitutional Vital Signs, click to edit/add: Last Vital Signs Temp 97.6 F 08/22/23 05:21 Pulse 71 08/22/23 05:21 Resp 20 08/22/23 05:21 BP 99/60 08/22/23 05:21 Pulse Ox 92 L 08/22/23 05:21 O2 Del Method Room Air 08/22/23 05:21 Common normals: no apparent distress, oriented x3, alert and well nourished General appearance: cooperative Orientation/consciousness: Yes awake [facility] Common normals: normocephalic, head/scalp atraumatic, hearing grossly normal bilaterally, external nose normal and moist oral mucous membranes Eye Common normals: PERRL, EOMs intact bilaterally, conjunctivae normal and no scleral icterus Alignment: alignment normal Neck & C-Spine Common normals: full ROM, supple and no JVD Chest Common normals: inspection of chest normal Chest: symmetrical chest wall rise Respiratory Common normals: normal respiratory effort, no retractions, no use of accessory muscles and clear to auscultation bilaterally Effort & inspection: able to speak in complete sentences Cardio Common normals: no JVD, regular rate, regular rhythm, S1 normal heart sound, S2 normal heart sound, no gallops, no clicks, no murmurs, no rub and peripheral pulses 2+ throughout GI Common normals: Normal to inspection, nondistended, normoactive bowel sounds present, soft to palpation, non-tender, no hepatosplenomegaly, no masses and no bruits Bladder/kidney exam: bladder normal to palpation Extremity Common normals: normal capillary refill and no pedal edema General: normal exam except as noted; no clubbing and no cyanosis Other: Strength 4+/5 to extremities while at rest except for LLE (chronically weaker) at 4-/5. Chronic contracture of the L hand. Did not assess ability to stand or transfer. Neuro Quan Coma Scale: GCS not evaluated Common normals: oriented x3, CN's II-XII intact bilaterally, moves all extremities, no focal motor deficits and no sensory deficits noted Psych Common normals: mental status grossly normal, thought process normal, affect normal and activity/motor behavior normal Results Labs Labs: Short CBC 08/21/23 08/22/23 Range/Units 16:49 04:33 WBC 6.8 7.1 (4.0-11.0) 10^3/uL Hgb 11.7 L 10.3 L (12.0-16.0) g/dL Hct 37.5 33.2 L (36.0-48.0) % Plt Count 213 201 (150-450) 10^3/uL BMP 08/21/23 08/22/23 16:49 04:33 Sodium 140 142 Potassium 3.7 3.5 Chloride 103 107 Carbon Dioxide 29.0 25.1 BUN 17.0 14.0 Creatinine 0.66 0.48 L Glucose 90 134 H Calcium 8.8 8.0 L Liver Function 08/21/23 08/22/23 Range/Units 16:49 04:33 Total Bilirubin 0.3 0.2 (0.2-1.0) mg/dL AST 47 H 25 (15-37) U/L ALT 26 20 (14-59) U/L Alkaline Phosphatase 91 82 (46-116) U/L Albumin 3.2 L 2.7 L (3.4-5.0) g/dL Urine 08/21/23 Range/Units 17:05 Urine Color Yellow (YELLOW) Urine Clarity Slightly cloudy A (CLEAR) Urine pH 6.0 (5.0-9.0) Ur Specific [place] >=1.030 A (1.005-1.025) Urine Protein Trace (NEG/TRACE) mg/dL Urine Glucose (UA) Negative (NEGATIVE) mg/dL Pulse Oximetry Attestation: I have reviewed the pertinent pulse oximetry results. Assessment and Plan Assessment and Plan (1) Multiple sclerosis exacerbation: Assessment and Plan: ACUTE * Adm observation * PT/OT consult for more thorough strength/mobility eval * Solu-medrol 500 mg daily for mild exacerbation * Encourage activity as much as possible * Continue home dalfampridine and modafinil (2) Non-healing wound of left lower extremity: Assessment and Plan: ACUTE ON CHRONIC * clinically suspected cellulitis in ED but not in evidence on my exam today * Chronic wound w/ old scabbing but underlying suspected purulence * Wound culture obtained during exam * Continue Rocephin and Vanco IVPB for now. Plan to d/c w/ Bactrim DS * Wound consult * CBC daily (3) Superficial thrombosis of left lower extremity: Assessment and Plan: ACUTE * Start Xarelto 10 mg daily - plan 45 day course but defer to outpatient PCP for mcc definitive management (4) Generalized weakness: Assessment and Plan: ACUTE ON CHRONIC * Suspect 2/2 MS flare and/or generalized deconditioning or chronic advancement of disease * See MS flare above * PT OT consults * Likely attempt re-admission to SNF for more strengthening as pt was apparently unable to even toilet herself since discharge 4 days ago (5) Adult failure to thrive: Assessment and Plan: ACUTE ON CHRONIC * Unable to perform ADLs or maintain adequate PO intake of food and water without assistance (6) Neurogenic incontinence: Assessment and Plan: CHRONIC * Continue home solifenacin (7) Anxiety: Assessment and Plan: CHRONIC * Continue home sertraline
[2023-08-22 13:17] VITALS: BP 126/74; PULSE 88; RESP 16; TEMP 36.8; O2SAT 93
--- NOTE | 2023-08-22 13:42 | CM.NOTE ---
Called Debby at [facility], PT recommends skilled therapy for pt. Pt requesting to return to [facility]. Debby states they will not accept pt back to [facility] d/t refusal of payments from pt. She has liability that she has to cover in payment and refused to pay.
[2023-08-22] MEDS: METHYLPREDNISOLONE SOD SUCC 500 MG in 0.9 % SODIUM CHLORIDE 100 ML 100 MG IV (13:43)
--- NOTE | 2023-08-22 14:25 | CM.NOTE ---
Talked with pt about [facility] not accepting her back d/t no payment. Pt very tearful but verbalizes understanding. Pt states eventually her daughter is planning on moving in with her but no date set at this time. Pt unable to ambulate or transfer self to wheelchair at this time. Pt lives alone but states her daughter is not far and comes over to assist her when needed. Pt wishes to try to get into [facility] for skilled therapy.
--- NOTE | 2023-08-22 14:37 | CM.NOTE ---
Spoke with [facility] and sent clinical for skilled therapy.
--- NOTE | 2023-08-22 15:05 | CM.NOTE ---
Medicare Outpatient Observation Notice explained to patient and they had no questions and signed form. Copy given to patient and copy placed on chart.
[2023-08-22 22:00] VITALS: BP 119/73; PULSE 77; RESP 18; TEMP 36.3; O2SAT 94
[2023-08-23] MEDS: BACLOFEN 10 MG TABLET 20 MG PO ×3 (04:34→21:27)
[2023-08-23 05:55] VITALS: BP 104/64; PULSE 69; RESP 20; TEMP 36.5; O2SAT 93
[2023-08-23 08:52] VITALS: BP 117/72; PULSE 76; RESP 16; TEMP 36.7; O2SAT 94
[2023-08-23] MEDS: CEFTRIAXONE 1,000 MG in 0.9 % SODIUM CHLORIDE 50 ML 100 MG IV (09:00)
[2023-08-23 09:01] LABS: Basophils Percent Auto 0.1 % (0.2-2.0); Hematocrit 33.9 % (36.0-48.0); Hemoglobin 10.3 g/dL (12.0-16.0); Immature Granulocytes Abs Auto 0.06 10^3/uL (0.00-0.03); Immature Granulocytes Pct Auto 0.5 % (0.0-0.5); Lymphocytes Absolute Auto 0.9 10^3/uL (1.2-3.8); Lymphocytes Percent Auto 7.9 % (20.5-60.0); Mean Corpuscular HGB Conc 30.4 g/dL (29.9-35.2); Mean Corpuscular Hemoglobin 27.9 pg (26.7-34.0); Mean Corpuscular Volume 91.9 fL (81.0-99.0); Mean Platelet Volume 9.9 fL (9.5-13.5); Monocytes Absolute Auto 0.7 10^3/uL (0.3-0.8); Monocytes Percent Auto 5.8 % (1.7-12.0); Neutrophils Absolute Auto 9.7 10^3/uL (1.4-6.5); Neutrophils Percent Auto 85.7 % (43.0-75.0); Platelet Count 190 10^3/uL (150-450); Red Blood Count 3.69 10^6/uL (4.20-5.40); White Blood Count 11.4 10^3/uL (4.0-11.0)
[2023-08-23] MEDS: RIVAROXABAN 10 MG TABLET PO (09:01)
[2023-08-23] MEDS: MODAFINIL 100 MG TABLET 200 MG PO (09:01)
[2023-08-23] MEDS: SERTRALINE HCL 100 MG TABLET PO (09:01)
[2023-08-23] MEDS: DALFAMPRIDINE 10 MG 10 EACH PO ×2 (09:04→21:28)
[2023-08-23] MEDS: SOLIFENACIN SUCCINATE 10 MG TABLET PO (09:05)
[2023-08-23 09:12] LABS: Alanine Aminotransferase 21 U/L (14-59); Albumin Globulin Ratio 0.7; Albumin Level 2.8 g/dL (3.4-5.0); Alkaline Phosphatase 84 U/L (46-116); Anion Gap 11.4; Aspartate Amino Transferase 14 U/L (15-37); BUN Creatinine Ratio 26.2; Bilirubin Total 0.2 mg/dL (0.2-1.0); Calcium 8.1 mg/dL (8.5-10.1); Carbon Dioxide 27.2 mmol/L (21.0-32.0); Chloride 107 mmol/L (98-107); Estimated GFR (African America >60 (>=60); Estimated GFR (Non-African Ame >60 (>=60); Globulin 3.8 g/dL; Glucose 102 mg/dL (74-106); Potassium 3.6 mmol/L (3.5-5.1); Sodium 142 mmol/L (136-145); Total Protein 6.6 g/dL (6.4-8.2)
[2023-08-23] MEDS: VANCOMYCIN HCL 2,000 MG in 0.9 % SODIUM CHLORIDE 500 ML 250 MG IV ×2 (10:01→21:27)
--- NOTE | 2023-08-23 11:07 | CM.NOTE ---
Rounding with Dr Valentino. spring to speak with patient regarding payment options if accepted. Discharge plan pending on this conversation.
[2023-08-23 11:21] LABS: Glucometer 122 mg/dL (74-106)
--- NOTE | 2023-08-23 11:23 | CM.NOTE ---
Discussed with pt response from [facility] upon accepting her for skilled therapy. For financial acceptance, per Business office and Administration pt would have to agree for us to become payee while she is here at our facility. When she is ready to DC home we would stop being payee.? Pt verbalizes she would be in agreement. Asked intake from [facility] to have verbal conversation with pt when they are at hospital today.
--- NOTE | 2023-08-23 11:25 | PT.DAILY ---
Physical Therapy Daily Note PT Daily Note/Assess Start: 08/23/23 11:15 Freq: Status: Active Protocol: Document 08/23/23 11:15 TEVIN (Rec: 08/23/23 11:25 DREWENIO [id number]) Physical Therapy Daily Note/Assessment Time In/Time Out Time In 10:50 Time Out 11:04 Pain In Pain N/A Pain Out Pain N/A Subjective Subjective Pt sitting in BS chair upon arrival. Agrees to PT. Therapeutic Exercise Time Therapeutic Exercise Minutes (minutes) 5 Therapeutic Exercise Units 0 Therapeutic Exercise Treatment Therapeutic Exercise Treatment Seated bilat LAQ, marches, abd step outs, add squeezes 10x2 ea to improve strength/ROM. Chair push ups 5x. Therapeutic Activity Time Therapeutic Activity Minutes (minutes) 5 Therapeutic Activity Units 1 Therapeutic Activity Treatment Chair Transfer Ability Maximum Assist Therapeutic Activity Comments Attempted to standing from BS chair 3x but unable to fully stand even with MAXA. Remains in BS chair with call light in reach. Total Physical Therapy Time Total Therapy Minutes 10 Total Physical Therapy Units 1 Summary Daily Note Summary Unable to stand with therapy today. Focused seated ther ex with good tolerance. Cooperative but weak. Would benefit from SNF.
--- NOTE | 2023-08-23 13:14 | P.PN_ITS ---
Patient seen and examined today. Chart reviewed. Case d/w AGUSTO Mckenzie. Agree with her clinical findings, documentation, treatment plan. Reprots subjectively feeling better. Exam: Laying in bed, comfortable. AAOX 3, LUE,LLE power is 4/5. Assessment and plan: C/w IV Rocephin/Vancomycin for Cellulitis/Non healing ulcer. C/w wound care. IV solumedrol for possible MS flare. Patient subjectively feels better PT/OT eval. Possible SNF placement Progress Note: Subjective Subjective Interval history: Date/time of exam: 08/23/23 0945 The pt is currently resting in bed. She reports feeling better this morning. She has not yet attempted to get up with PT, but she subjectively reports feeling a little stronger w/ steroid administration. As she is on very high dose glucocorticoids for MS flare, we will check her blood sugars ACHS and give SS insulin for glucose correction if indicated. As the pt is not able to perform ADLS or ambulate indepdently, PT is recommending a SNF admission after discharge. We will continue IVPB ABX for non-healing venous stasis ulcer of the LLE w/ suspected surrounding cellulitis. Exam Constitutional Vital Signs, click to edit/add: Last Vital Signs Temp 98.0 F 08/23/23 08:52 Pulse 76 08/23/23 08:52 Resp 16 08/23/23 08:52 BP 117/72 08/23/23 08:52 Pulse Ox 94 L 08/23/23 08:52 O2 Del Method Room Air 08/23/23 08:52 Common normals: no apparent distress, oriented x3, alert and well nourished Orientation/consciousness: Yes awake [facility] Common normals: normocephalic, head/scalp atraumatic, hearing grossly normal bilaterally, external nose normal and moist oral mucous membranes Eye Common normals: PERRL, EOMs intact bilaterally, conjunctivae normal and no scleral icterus Alignment: alignment normal Chest Common normals: inspection of chest normal Chest: symmetrical chest wall rise Respiratory Common normals: normal respiratory effort, no retractions, no use of accessory muscles and clear to auscultation bilaterally Effort & inspection: able to speak in complete sentences Auscultation: diminished lung sounds (BLL) Cardio Common normals: no JVD, regular rate, regular rhythm, S1 normal heart sound, S2 normal heart sound, no gallops, no clicks, no rub and peripheral pulses 2+ throughout GI Common normals: Normal to inspection, nondistended, normoactive bowel sounds present, soft to palpation, non-tender, no hepatosplenomegaly, no masses and no bruits Extremity Common normals: normal capillary refill General: normal exam except as noted; no clubbing and no cyanosis Other: Strength 4+/5 to extremities while at rest except for LLE (chronically weaker) at 4-/5. Chronic contracture of the L hand. Did not assess ability to stand or transfer. Neuro Quan Coma Scale: GCS not evaluated Common normals: CN's II-XII intact bilaterally, moves all extremities, no focal motor deficits and no sensory deficits noted Psych Common normals: mental status grossly normal and affect normal Progress Note: Objective Labs Labs: Short CBC 08/23/23 Range/Units 08:47 WBC 11.4 H (4.0-11.0) 10^3/uL Hgb 10.3 L (12.0-16.0) g/dL Hct 33.9 L (36.0-48.0) % Plt Count 190 (150-450) 10^3/uL BMP 08/23/23 08:47 Sodium 142 Potassium 3.6 Chloride 107 Carbon Dioxide 27.2 BUN 16.0 Creatinine 0.61 Glucose 102 Calcium 8.1 L Liver Function 08/23/23 Range/Units 08:47 Total Bilirubin 0.2 (0.2-1.0) mg/dL AST 14 L (15-37) U/L ALT 21 (14-59) U/L Alkaline Phosphatase 84 (46-116) U/L Albumin 2.8 L (3.4-5.0) g/dL Progress Note: A&P Assessment and Plan (1) Multiple sclerosis exacerbation: Assessment and Plan: ACUTE * Continue Solu-medrol 500 mg daily for mild exacerbation * PT/OT consult for strength/mobility eval & treat * Encourage activity as much as possible * Continue home dalfampridine and modafinil (2) Non-healing wound of left lower extremity: Assessment and Plan: ACUTE ON CHRONIC * Clinically suspected cellulitis surrounding a non-healing venous stasis ulceration * Chronic wound w/ old scabbing but underlying suspected purulence * Wound culture obtained 08/22 growing staph aureus w/ PATRIZIA to follow * Continue Rocephin and Vanco IVPB for now. Plan to d/c w/ Bactrim DS * Wound consult - we appreciate their recommendations for wound care * CBC daily (3) Superficial thrombosis of left lower extremity: Assessment and Plan: ACUTE * Continue Xarelto 10 mg daily - plan 45 day course but defer to outpatient PCP for custodial definitive management (4) Generalized weakness: Assessment and Plan: ACUTE ON CHRONIC * Suspect 2/2 MS flare and/or generalized deconditioning or chronic advancement of disease * See MS flare above * PT OT consults * Likely attempt re-admission to SNF for more strengthening as pt was apparently unable to even toilet herself since discharge 4 days ago (5) Adult failure to thrive: Assessment and Plan: ACUTE ON CHRONIC * Unable to perform ADLs or maintain adequate PO intake of food and water without assistance (6) Neurogenic incontinence: Assessment and Plan: CHRONIC * Continue home solifenacin (7) Anxiety: Assessment and Plan: CHRONIC * Continue home sertraline
[2023-08-23 13:29] VITALS: BP 113/70; PULSE 77; RESP 16; TEMP 36.7; O2SAT 93
--- NOTE | 2023-08-23 13:40 | CM.NOTE ---
[facility] accept pt and precert started today. Discussed this with pt.
[2023-08-23] MEDS: METHYLPREDNISOLONE SOD SUCC 500 MG in 0.9 % SODIUM CHLORIDE 100 ML 100 MG IV (15:23)
[2023-08-23 15:57] LABS: Glucometer 130 mg/dL (74-106)
[2023-08-23] MEDS: INSULIN ASPART 300 UNIT/3 ML PEN SUBQ (21:28)
[2023-08-23 21:30] LABS: Glucometer 161 mg/dL (74-106)
[2023-08-23 21:41] VITALS: BP 102/69; PULSE 67; RESP 18; TEMP 36.4; O2SAT 93
[2023-08-24] MEDS: BACLOFEN 10 MG TABLET 20 MG PO ×2 (05:12→14:10)
[2023-08-24 05:16] VITALS: BP 133/68; PULSE 67; RESP 18; TEMP 36.4; O2SAT 96
[2023-08-24 05:51] LABS: Hematocrit 33.3 % (36.0-48.0); Hemoglobin 10.3 g/dL (12.0-16.0); Immature Granulocytes Abs Auto 0.03 10^3/uL (0.00-0.03); Immature Granulocytes Pct Auto 0.4 % (0.0-0.5); Lymphocytes Absolute Auto 0.5 10^3/uL (1.2-3.8); Mean Corpuscular HGB Conc 30.9 g/dL (29.9-35.2); Mean Corpuscular Hemoglobin 28.1 pg (26.7-34.0); Mean Corpuscular Volume 90.7 fL (81.0-99.0); Mean Platelet Volume 10.5 fL (9.5-13.5); Monocytes Absolute Auto 0.2 10^3/uL (0.3-0.8); Monocytes Percent Auto 3.2 % (1.7-12.0); Neutrophils Absolute Auto 6.5 10^3/uL (1.4-6.5); Neutrophils Percent Auto 89.4 % (43.0-75.0); Platelet Count 172 10^3/uL (150-450); Red Blood Count 3.67 10^6/uL (4.20-5.40); Red Cell Distribution Width 14.7 % (11.0-15.0); White Blood Count 7.3 10^3/uL (4.0-11.0)
[2023-08-24 06:23] LABS: Alanine Aminotransferase 19 U/L (14-59); Albumin Globulin Ratio 0.7; Albumin Level 2.7 g/dL (3.4-5.0); Alkaline Phosphatase 81 U/L (46-116); Anion Gap 10.5; Aspartate Amino Transferase 14 U/L (15-37); BUN Creatinine Ratio 30.9; Bilirubin Total 0.2 mg/dL (0.2-1.0); Calcium 8.2 mg/dL (8.5-10.1); Carbon Dioxide 25.3 mmol/L (21.0-32.0); Chloride 105 mmol/L (98-107); Estimated GFR (African America >60 (>=60); Estimated GFR (Non-African Ame >60 (>=60); Globulin 3.8 g/dL; Glucose 118 mg/dL (74-106); Potassium 3.8 mmol/L (3.5-5.1); Sodium 137 mmol/L (136-145); Total Protein 6.5 g/dL (6.4-8.2)
[2023-08-24] MEDS: RIVAROXABAN 10 MG TABLET PO (08:42)
[2023-08-24] MEDS: SERTRALINE HCL 100 MG TABLET PO (08:42)
[2023-08-24] MEDS: MODAFINIL 100 MG TABLET 200 MG PO (08:42)
[2023-08-24] MEDS: SOLIFENACIN SUCCINATE 10 MG TABLET PO (08:43)
[2023-08-24] MEDS: CEFTRIAXONE 1,000 MG in 0.9 % SODIUM CHLORIDE 50 ML 100 MG IV (08:45)
[2023-08-24] MEDS: DALFAMPRIDINE 10 MG 10 EACH PO (08:46)
[2023-08-24 09:23] LABS: Vancomycin Trough 19.4 ug/mL (5.0-20.0)
[2023-08-24] MEDS: VANCOMYCIN HCL 2,000 MG in 0.9 % SODIUM CHLORIDE 500 ML 250 MG IV (09:47)
--- NOTE | 2023-08-24 10:19 | CM.NOTE ---
2nd Notice of Medicare Outpatient Observation discussed with pt, pt denies questions or concerns.
--- NOTE | 2023-08-24 11:05 | PT.DAILY ---
Physical Therapy Daily Note PT Daily Note/Assess Start: 08/23/23 11:15 Freq: Status: Active Protocol: Document 08/24/23 11:02 DREWENIO (Rec: 08/24/23 11:05 TEVIN [id number]) Physical Therapy Daily Note/Assessment Time In/Time Out Time In 09:20 Time Out 09:40 Pain In Pain N/A Pain Out Pain N/A Subjective Subjective Pt supine upon arrival. Agrees to PT. Therapeutic Exercise Time Therapeutic Exercise Minutes (minutes) 5 Therapeutic Exercise Units 0 Therapeutic Exercise Treatment Therapeutic Exercise Treatment Pt performs bilat LAQ, marches , add squeezes and abd step outs 10x in BS chair. Therapeutic Activity Time Therapeutic Activity Minutes (minutes) 9 Therapeutic Activity Units 1 Therapeutic Activity Treatment Bed Mobility Ability Moderate Assist Chair Transfer Ability Minimum Assist,2 Person Assist Therapeutic Activity Comments Pt performs bed mobs with ModA to advance upper body to sit at EOB. Once sitting EOB pt is able to maintain static seated balance without LOB for 3 min while shoes/AFO's are donned. Sit>stand to RW from elevated bed with Andreas+2. Pt amb 5' with RW, Andreas/CGA+2 for safety. needs occ cues to keep walker close. Pt sits in BS chair for LE strengthening ex. Remains in BS chair upon completion with call light in reach and needs met. Total Physical Therapy Time Total Therapy Minutes 14 Total Physical Therapy Units 1 Summary Daily Note Summary Improved transfers and gait ability today.
[2023-08-24 11:20] LABS: Glucometer 123 mg/dL (74-106)
--- NOTE | 2023-08-24 11:59 | CM.NOTE ---
Rounded with Dr. Valentino this AM. Awaiting precertification from insurance for [facility]. Pt. remains in agreement with this plan.
--- NOTE | 2023-08-24 12:18 | P.DS_ITS ---
Seen and examined. Chart reviewed. Case d/w gia. Agree with her findings, treatment plan Exam: Sitting on recliner. NAD CTA b/l Normal S1,S2, no murmur Left leg cellulitis Left Superficial vein thrombosis MS exacerbation Stable for d/c. F/u with PCP. FInish oral abx and prednisone taper DS: Providers Provider Date of admission: 08/21/23 19:55 Primary care physician: VAIBHAV SUNSHINE Consults: 08/22/23 10:16 Physical Therapy Eval and Treat Routine Reason for consultation: Gen weakness; MS baseline Has provider been notified: No 08/22/23 10:17 Occupational Therapy Eval and Treat Routine Reason for consultation: Gen weakness; MS baseline Has provider been notified: No 08/22/23 12:40 Consult to Wound Care Routine Consulting Provider: Abhijit Guerra Reason for consultation: LLE non-healing ulcer Has provider been notified: No Discharging clinician: Gia Srivastava DS: Diagnosis Discharge Diagnosis (1) Multiple sclerosis exacerbation: (2) Non-healing wound of left lower extremity: (3) Cellulitis of left leg: (4) Superficial thrombosis of left lower extremity: (5) Generalized weakness: (6) Adult failure to thrive: (7) Neurogenic incontinence: (8) Anxiety: DS: Summary Hospital Course Hospital Course: Patient was admitted to observation with a mild MS exacerbation, LLE superficial DVT, and a chronic nonhealing wound of the left lower extremity with suspected surrounding cellulitis. She was treated with high-dose IV Solu-Medrol, IVPB Rocephin and vancomycin, and Xarelto during her stay. She was significantly weak and adult failure to thrive was also noted at the time of admission. Her strength did begin to improve after 2 days of Solu-Medrol and PT strengthening. She was seen in consult by the wound clinic and wound dressing was recommended and followed. As the patient is improving but requires further rehab strengthening, she is being discharged to a local SNF for usp and rehab. She has been prescribed Bactrim for 10 more days and prednisone 600 mg daily x4 more days. She should follow-up with Dr. Ge in the wound clinic 1 week after discharge. She was also prescribed Xarelto 10 mg daily for her superficial DVT. She is to follow-up with her PCP within 5 to 7 days to discuss total length of treatment, 30-day versus 45-day total course. Time Spent with Patient Time attestation: Total time spent providing and/or coordinating discharge services: Time spent: greater than 30 minutes Specific discharge activities: Physical exam, discussion of discharge plan, questions answered. Exam Constitutional Vital Signs, click to edit/add: Last Vital Signs Temp 97.6 F 08/24/23 05:16 Pulse 67 08/24/23 05:16 Resp 18 08/24/23 05:16 BP 133/68 08/24/23 05:16 Pulse Ox 96 08/24/23 05:16 O2 Del Method Room Air 08/24/23 05:16 Common normals: no apparent distress, oriented x3 and alert General appearance: cooperative Orientation/consciousness: Yes awake [facility] Common normals: normocephalic and head/scalp atraumatic Eye Common normals: PERRL, EOMs intact bilaterally, conjunctivae normal and no scleral icterus Neck & C-Spine Common normals: no JVD Respiratory Common normals: normal respiratory effort, no use of accessory muscles and clear to auscultation bilaterally Effort & inspection: able to speak in complete sentences and symmetric chest movement Cardio Common normals: no JVD, regular rate, regular rhythm, S1 normal heart sound, S2 normal heart sound and peripheral pulses 2+ throughout Heart sounds: murmur (HSM 2/6) GI Common normals: Normal to inspection, nondistended, normoactive bowel sounds present, soft to palpation and non-tender Bladder/kidney exam: bladder normal to palpation Extremity Common normals: normal to inspection, full ROM, normal capillary refill and no pedal edema General: no clubbing and no cyanosis Neuro Common normals: moves all extremities, no focal motor deficits and no sensory deficits noted Speech: speech normal Psych Common normals: mental status grossly normal DS: Data Data Completed and Pending Labs on day of discharge: Labs from last 24 hours 08/24/23 08/24/23 08/24/23 11:20 08:55 04:55 WBC 7.3 RBC 3.67 L Hgb 10.3 L Hct 33.3 L MCV 90.7 MCH 28.1 MCHC 30.9 RDW 14.7 Plt Count 172 MPV 10.5 Neut % (Auto) 89.4 H Lymph % (Auto) 7.0 L Walton % (Auto) 3.2 Eos % (Auto) 0.0 L Baso % (Auto) 0.0 L Neut # (Auto) 6.5 Lymph # (Auto) 0.5 L Walton # (Auto) 0.2 L Eos # (Auto) 0.0 Baso # (Auto) 0.0 Abs Immat Gran (auto) 0.03 Imm/Tot Granulo (auto) 0.4 Sodium 137 Potassium 3.8 Chloride 105 Carbon Dioxide 25.3 Anion Gap 10.5 BUN 17.0 Creatinine 0.55 Est GFR ( Amer) >60 Est GFR (Non-Af Amer) >60 BUN/Creatinine Ratio 30.9 Glucose 118 H Calcium 8.2 L Total Bilirubin 0.2 AST 14 L ALT 19 Alkaline Phosphatase 81 Total Protein 6.5 Albumin 2.7 L Globulin 3.8 Albumin/Globulin Ratio 0.7 Vancomycin Trough 19.4 POC Glucose 123 H 08/23/23 08/23/23 21:25 15:55 WBC RBC Hgb Hct MCV MCH MCHC RDW Plt Count MPV Neut % (Auto) Lymph % (Auto) Walton % (Auto) Eos % (Auto) Baso % (Auto) Neut # (Auto) Lymph # (Auto) Walton # (Auto) Eos # (Auto) Baso # (Auto) Abs Immat Gran (auto) Imm/Tot Granulo (auto) Sodium Potassium Chloride Carbon Dioxide Anion Gap BUN Creatinine Est GFR ( Amer) Est GFR (Non-Af Amer) BUN/Creatinine Ratio Glucose Calcium Total Bilirubin AST ALT Alkaline Phosphatase Total Protein Albumin Globulin Albumin/Globulin Ratio Vancomycin Trough POC Glucose 161 H 130 H Preliminary micro results at discharge 08/22/23 10:40 Wound Culture - Preliminary Leg Left Staphylococcus aureus Discharge Plan Discharge Disposition: Xfer SNF Condition: Good Discharge Medications: New Xarelto 10 mg tablet 10 mg PO DAILY Qty: 30 0RF sulfamethoxazole-trimethoprim [Bactrim DS] 800-160 mg tablet 1 tab PO BID 10 Days Qty: 20 0RF prednisone 50 mg tablet 600 mg PO DAILY 4 Days Qty: 48 0RF Continued baclofen 20 mg tablet 20 mg PO Q8H dalfampridine 10 mg tablet extended release 12 hr 10 mg PO Q12H modafinil 200 mg tablet 200 mg PO DAILY sertraline 100 mg tablet 100 mg PO DAILY solifenacin 10 mg tablet 10 mg PO DAILY cholecalciferol (vitamin D3) 1,250 mcg (50,000 unit) capsule 50,000 unit PO .COMPLEX Rx Instructions: 50,000 units orally every Monday; Activity Restrictions/Additional Instructions: - LLE ulceration Wound care: Xeroform, 4x4 gauze, kerlix, light soniya wrap q48h Forms: Portal Instructions Follow Up Appointments: - Wound clinic w/ Dr Ge in 1 week - PCP in 5-7 days - discuss length of treatment for superficial DVT Discharge Date/Time: 08/24/23 15:37
[2023-08-24] MEDS: METHYLPREDNISOLONE SOD SUCC 500 MG in 0.9 % SODIUM CHLORIDE 100 ML 100 MG IV (14:10)
--- NOTE | 2023-08-24 14:16 | CM.NOTE ---
Pt will be discharged to [facility] today for skilled therapy. Called [facility] with transport time of 3:00 with [facility], faxed discharge summary and medication list. HEN's completed for [facility]. Pt also updated with time of transport.
--- NOTE | 2023-08-24 14:59 | PC.NURSE ---
RN called [facility] to give report. After report was given the nurse from there wanted clarification on the prednisone order for the patient at discharge. Writing RN place facility nurse on hold to call AGUSTO Scott to clarify order. IT SYSTEMS ADMINISTRATOR stated that the 600mg daily of prednisone was correct, it is for the MS flare up. Information relayed to the facility nurse.
== END 2023-08-24 15:37 ==
LOC: ER 19:30 → MS 08-22 07:24
PROVIDERS: Physician Assistant; Admitting Provider Internal Medicine; Emergency Provider Emergency Medicine; PCP Family Medicine; Visit Provider Nurse Practitioner
DX: L03.116 Cellulitis of left lower limb (principal); I82.812 Embolism and thrombosis of superficial veins of left lower extremity; G35 Multiple sclerosis; R53.1 Weakness; I87.2 Venous insufficiency (chronic) (peripheral); L97.929 Non-pressure chronic ulcer of unspecified part of left lower leg with unspecified severity; R62.7 Adult failure to thrive; F41.9 Anxiety disorder, unspecified; E78.5 Hyperlipidemia, unspecified; N31.9 Neuromuscular dysfunction of bladder, unspecified; F32.A Depression, unspecified; Z79.899 Other long term (current) drug therapy; Z87.891 Personal history of nicotine dependence; A49.01 Methicillin susceptible Staphylococcus aureus infection, unspecified site
CPT/HCPCS: 36415; 80048; 80053; 80202; 81001; 82948; 83605; 83735; 84484; 85025; 85027; 85652; 86140; 87070; 87150; 87186; 93005; 93971; 96365; 96366; 96367; 96368; 96376; 97110; 97161; 97165; 97530; 97535; 99285; G0378; J2920; J2930; J3370

== ENCOUNTER 2025-03-03 08:29 | Outpatient (RCR) | payer MEDICARE, MEDICAID, SELFPAY ==
[2025-03-03 10:25] VITALS: BP 143/76; PULSE 67; TEMP 36.5; O2SAT 95
[2025-03-03 11:13] LABS: Hematocrit 41.5 % (36.0-48.0); Hemoglobin 14.1 g/dL (12.0-16.0); Mean Corpuscular Hemoglobin 31.3 pg (26.7-34.0); Mean Corpuscular Volume 92.2 fL (81.0-99.0); Mean Platelet Volume 9.8 fL (9.5-13.5); Platelet Count 212 10^3/uL (150-450); Red Cell Distribution Width 13.4 % (11.0-15.0); White Blood Count 6.1 10^3/uL (4.0-11.0)
[2025-03-03 11:32] LABS: Alanine Aminotransferase 18 U/L (14-59); Albumin Globulin Ratio 0.8; Albumin Level 3.2 g/dL (3.4-5.0); Alkaline Phosphatase 122 U/L (46-116); Aspartate Amino Transferase 16 U/L (15-37); Bilirubin Total 0.3 mg/dL (0.2-1.0); Calcium 9.1 mg/dL (8.5-10.1); Chloride 102 mmol/L (98-107); Estimated GFR (African America >60 (>=60 mL/min/1.73m^2); Estimated GFR (Non-African Ame >60 (>=60 mL/min/1.73m^2); Globulin 4.2 g/dL; Glucose 98 mg/dL (74-106); Sodium 135 mmol/L (136-145); Total Protein 7.4 g/dL (6.4-8.2)
[2025-03-03 11:34] LABS: Band Neutrophils Absolute 0.1 10^3/uL (0.0-0.3); Basophils Abs Manual 0.06 10^3/uL (0.00-0.10); Eosinophils Absolute Manual 0.06 10^3/uL (0.00-0.70); Lymphocytes Absolute Manual 0.67 10^3/uL (1.20-3.80); Monocytes Absolute Manual 0.42 10^3/uL (0.30-0.80); Segmented Neut Absolute Manual 4.75 10^3/uL (1.4-6.5)
[2025-03-03 11:35] LABS: Anisocytosis 1+
[2025-03-03] MEDS: METHYLPREDNISOLONE SOD SUCC PF 40 MG/ML VIAL IVP (11:56)
[2025-03-03] MEDS: DIPHENHYDRAMINE HCL 50 MG/ML VIAL 25 MG IV (11:56)
[2025-03-03] MEDS: ACETAMINOPHEN 500 MG TABLET PO (11:57)
[2025-03-03] MEDS: OCRELIZUMAB 600 MG in 0.9 % SODIUM CHLORIDE 500 ML 100 MG IV (12:39)
--- NOTE | 2025-03-03 13:24 | PC.NURSE ---
1300 tolerating infusion without any s/s of reaction. titration as documented. Eats 100% meal 1320 Dozes on and off. respirations with ease.
== END 2025-03-17 10:54 | disposition home or self-care (01) ==
LOC: LAB 08:29
PROVIDERS: PCP Family Medicine; Visit Provider Psychiatry & Neurology Neurology
DX: G35 Multiple sclerosis (principal)
CPT/HCPCS: 80053; 85007; 85027; 96365; 96366; 96375; J1200; J2350; J2919